=== PATIENT | female | born 1950 | race Caucasian/White ===

== ENCOUNTER 2020-09-24 19:05 | Inpatient (IN) | payer MEDICARE ==
[2020-09-24] MEDS: HEPARIN SODIUM 1,000 UN/ML (10ML VL) IV ONE ×3 (08:30→22:18)
[~2020-09-24 19:05] MED LIST: ATROPINE SULFATE 0.1 MG/ML 10ML SYRINGE IV ONE; NOREPINEPHRINE 1 MG/ML 4 ML VIAL IV ONE; SODIUM CHLORIDE 0.9% 250 ML BAG ONE; TICAGRELOR 90 MG TAB PO ONE
[2020-09-24] MEDS ORDERED: SODIUM CHLORIDE 0.9% 500 ML 500 ML IV STA (19:33)
[2020-09-24] MEDS ORDERED: ASPIRIN 81 MG PO STA (19:33)
[2020-09-24] MEDS ORDERED: NITROGLYCERIN OINT 1 INCH/GM PACKET TOPICAL STA (19:33)
[2020-09-24] MEDS ORDERED: NITROGLYCERIN SL TABS 0.4 MG TAB SUBLINGUAL STA (19:33)
[2020-09-24] MEDS ORDERED: NITROGLYCERIN-D5W PMX 50 MG in DEXTROSE/WATER 1 250ML.BAG IV ONE (19:35)
[2020-09-24] MEDS ORDERED: HEPARIN SODIUM,PORCINE 5,000 UNIT/ML 1 ML VIAL IV ONE (19:36)
--- NOTE | 2020-09-24 19:43 | ED ---
General Adult HPI - General Chief complaint: Chest Pain Stated complaint: Chest Pain Time Seen by Provider: 09/24/20 19:10 Source: patient, RN notes reviewed, old records reviewed Mode of arrival: EMS Limitations: no limitations - History of Present Illness Initial comments: This is a 70-year-old female who presents emergency department with past medical history significant for coronary artery disease and one stent placement. Patient also states she has high blood pressure. Patient states 2 hours ago she started having chest pain and an was diaphoretic but she denies shortness of breath. Patient states she had [address] in with EMS and did not help her symptoms at all. Patient states this chest pain is very similar to chest pain she had when she had her previous heart attack. - Related Data Home Medications Medication Instructions Recorded Confirmed Nitroglycerin Sl Tabs [Nitrostat] 0.4 mg SL Q5M PRN 05/25/14 01/24/16 atenoloL [Tenormin] 25 mg PO BID 05/25/14 01/24/16 Aspirin EC [Ecotrin Low Dose] 243 mg PO DAILY 01/10/16 01/24/16 Atorvastatin [Lipitor] 40 mg PO HS 01/24/16 01/24/16 Allergies Allergy/AdvReac Type Severity Reaction Status Date / Time No Known Allergies Allergy Verified 09/24/20 19:13 Review of Systems ROS Statement: Those systems with pertinent positive or pertinent negative responses have been documented in the HPI. ROS Other: All systems not noted in ROS Statement are negative. Past Medical History Past Medical History: Coronary Artery Disease (CAD), Chest Pain / Angina, GERD/Reflux, Hyperlipidemia, Hypertension, Syncope Additional Past Medical History / Comment(s): Pt recently admitted 01/10/16 and had negative stress test, positive for UTI and completed ABX. 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 General Exam - General Exam Comments Initial Comments: GENERAL: Patient is well-developed and well-nourished. Patient is nontoxic and well- hydrated and is in moderate distress. ENT: Neck is soft and supple. No significant lymphadenopathy is noted. Oropharynx is clear. Moist mucous membranes. Neck has full range of motion without eliciting any pain. EYES: The sclera were anicteric and conjunctiva were pink and moist. Extraocular movements were intact and pupils were equal round and reactive to light. Eyelids were unremarkable. PULMONARY: Unlabored respirations. Good breath sounds bilaterally. No audible rales rhonchi or wheezing was noted. CARDIOVASCULAR: There is a regular rate and rhythm without any murmurs gallops or rubs. ABDOMEN: Soft and nontender with normal bowel sounds. SKIN: Skin is clear with no lesions or rashes and otherwise unremarkable. NEUROLOGIC: Patient is alert and oriented x3. Cranial nerves II through XII are grossly intact. Motor and sensory are also intact. Normal speech, volume and content. Symmetrical smile. MUSCULOSKELETAL: Normal extremities with adequate strength and full range of motion. No lower extremity swelling or edema. No calf tenderness. LYMPHATICS: No significant lymphadenopathy is noted PSYCHIATRIC: Normal psychiatric evaluation. Limitations: no limitations Course Vital Signs 09/24/20 09/24/20 19:09 19:54 Temperature 97.9 F Pulse Rate 62 61 Respiratory 18 18 Rate Blood Pressure 117/69 120/64 O2 Sat by Pulse 96 100 Oximetry Medical Decision Making - Medical Decision Making EKG was done initially shows sinus bradycardia 57 bpm WA interval is 186 QRS is 82 QT interval 446 QTC is 434. Patient's EKG shows some ST segment elevation in leads V1 through the 4. Second EKG was done approximately 15 minutes later it showed a normal sinus rhythm at 60 bpm WA interval is 126 QRS is 72 QT interval is [address] segment elevation in V1 through V5. As soon as I saw the first EKG I called a STEMI overhead Dr. Rodrigues called back promptly and he was in agreement that it was a STEMI. I started the patient on a 4000 bolus heparin I started the patient on a nitro drip. Director Of Nurses Registry was ready to take the patient 757. - Lab Data Result diagrams: 09/24/20 19:38 09/24/20 19:35 Lab Results 09/24/20 09/24/20 Range/Units 19:35 19:38 WBC 12.6 H (3.8-10.6) k/uL RBC 4.39 (3.80-5.40) m/uL Hgb 12.4 (11.4-16.0) gm/dL Hct 39.1 (34.0-46.0) % MCV 89.0 (80.0-100.0) fL MCH 28.2 (25.0-35.0) pg MCHC 31.7 (31.0-37.0) g/dL RDW 13.4 (11.5-15.5) % Plt Count 290 (150-450) k/uL MPV 9.2 Neutrophils % 68 % Lymphocytes % 22 % Monocytes % 5 % Eosinophils % 3 % Basophils % 0 % Neutrophils # 8.6 H (1.3-7.7) k/uL Lymphocytes # 2.8 (1.0-4.8) k/uL Monocytes # 0.6 (0-1.0) k/uL Eosinophils # 0.4 (0-0.7) k/uL Basophils # 0.1 (0-0.2) k/uL Sodium 137 (137-145) mmol/L Potassium 4.2 (3.5-5.1) mmol/L Chloride 105 (98-107) mmol/L Carbon Dioxide 26 (22-30) mmol/L Anion Gap 6 mmol/L BUN 19 H (7-17) mg/dL Creatinine 0.83 (0.52-1.04) mg/dL Est GFR (CKD-EPI)AfAm 83 (>60 ml/min/1.73 sqM) Est GFR (CKD-EPI)NonAf 72 (>60 ml/min/1.73 sqM) Glucose 170 H (74-99) mg/dL Calcium 8.5 (8.4-10.2) mg/dL Magnesium 1.8 (1.6-2.3) mg/dL Total Bilirubin 0.4 (0.2-1.3) mg/dL AST 29 (14-36) U/L ALT 25 (4-34) U/L Alkaline Phosphatase 164 H (38-126) U/L Total Protein 6.8 (6.3-8.2) g/dL Albumin 3.8 (3.5-5.0) g/dL Critical Care Time Critical Care Time: Yes Total Critical Care Time: 35 Disposition Clinical Impression: ST elevation myocardial infarction (STEMI) Disposition: ADMITTED IP TO THIS HOSP Referrals: Nonstaff,Physician [Primary Care Provider] - 1-2 days Time of Disposition: 19:58
[2020-09-24 19:46] LABS: Basophils # (A) 0.1 k/uL (0-0.2); Basophils % (A) 0 %; Eosinophils # (A) 0.4 k/uL (0-0.7); Eosinophils % (A) 3 %; HCT 39.1 % (34.0-46.0); HGB 12.4 gm/dL (11.4-16.0); Lymphocytes # (A) 2.8 k/uL (1.0-4.8); Lymphocytes % (A) 22 %; MCH 28.2 pg (25.0-35.0); MCHC 31.7 g/dL (31.0-37.0); Mean Platelet Volume 9.2; Monocytes # (A) 0.6 k/uL (0-1.0); Monocytes % (A) 5 %; Neutrophils # (A) 8.6 k/uL (1.3-7.7); Neutrophils % (A) 68 %; Platelet Count 290 k/uL (150-450); RBC 4.39 m/uL (3.80-5.40); RDW 13.4 % (11.5-15.5); WBC 12.6 k/uL (3.8-10.6)
[2020-09-24 19:57] LABS: Albumin 3.8 g/dL (3.5-5.0); Calcium 8.5 mg/dL (8.4-10.2); Magnesium 1.8 mg/dL (1.6-2.3); Potassium 4.2 mmol/L (3.5-5.1); Total Bilirubin 0.4 mg/dL (0.2-1.3); Total Protein 6.8 g/dL (6.3-8.2)
--- NOTE | 2020-09-24 19:58 | XR ---
EXAMINATION TYPE: XR chest 1V portable DATE OF EXAM: 09/24/2020 COMPARISON: 01/24/2016 HISTORY: Chest pain TECHNIQUE: Single view FINDINGS: Heart is normal. Lungs are clear of consolidation. There are no hilar masses. Costophrenic angles are clear. There are chest leads. Bony thorax is intact. IMPRESSION: No active cardiopulmonary disease. No change.
[2020-09-24] MEDS ORDERED: LIDOCAINE 1% INJ 10MG/ML (20 ML MDV) ONE ×2 (20:00→20:43)
[2020-09-24 20:02] LABS: INR 0.9 (<1.2)
[2020-09-24 20:06] LABS: Partial Thromboplastin Time 16.5 sec (22.0-30.0)
[2020-09-24] MEDS ORDERED: SODIUM CHLORIDE 0.9% 500 ML 500 ML IV ONE (20:10)
[2020-09-24] MEDS ORDERED: fentaNYL (PF) 50 MCG/ML 2 ML AMP ONE (20:14)
[2020-09-24] MEDS ORDERED: VERAPAMIL 2.5 MG/ML 2 ML AMP ONE (20:15)
[2020-09-24] MEDS ORDERED: LIDOCAINE 1% INJ 10MG/ML (20 ML MDV) SQ ONE (20:18)
[2020-09-24] MEDS ORDERED: fentaNYL (PF) 50 MCG/ML 2 ML AMP IV ONE (20:18)
[2020-09-24] MEDS ORDERED: VERAPAMIL SYRINGE (5 MG/10 ML) INTRAARTER ONE (20:20)
[2020-09-24] MEDS ORDERED: HEPARIN SODIUM 1,000 UN/ML (10ML VL) ONE ×2 (20:29→21:37)
[2020-09-24] MEDS ORDERED: TICAGRELOR 90 MG TAB ONE (20:30)
--- NOTE | 2020-09-24 20:39 | P.CRDCN ---
History of Present Illness Consult date: 09/24/20 History of present illness: This is a 70-year-old female with history of ischemic heart disease with previous stent placement of the mid LAD and also hypercholesterolemia who is admitted to the hospital with complaints of chest pain which started about 2 hours ago. EKG showed evidence of anterior wall myocardial infarction. Patient is advised to have a cardiac catheterization for definite diagnosis and further intervention as needed. Patient is having significant chest pain at the time of this evaluation. Review of Systems Not obtained Past Medical History Past Medical History: Coronary Artery Disease (CAD), Chest Pain / Angina, GERD/Reflux, Hyperlipidemia, Hypertension, Syncope Additional Past Medical History / Comment(s): Pt recently admitted 01/10/16 and had negative stress test, positive for UTI and completed ABX. 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 Medications and Allergies Home Medications Medication Instructions Recorded Confirmed Type Nitroglycerin Sl Tabs [Nitrostat] 0.4 mg SL Q5M PRN 05/25/14 09/24/20 History atenoloL [Tenormin] 25 mg PO BID 05/25/14 09/24/20 History Aspirin EC [Ecotrin Low Dose] 243 mg PO HS 01/10/16 09/24/20 History Atorvastatin [Lipitor] 40 mg PO HS 01/24/16 09/24/20 History Allergies Allergy/AdvReac Type Severity Reaction Status Date / Time No Known Allergies Allergy Verified 09/24/20 19:13 Physical Exam Vitals: Vital Signs Temp Pulse Resp BP Pulse Ox 09/24/20 20:20 97.9 F 61 18 120/64 100 09/24/20 19:54 61 18 120/64 100 09/24/20 19:09 97.9 F 62 18 117/69 96 Intake and Output 09/24/20 09/24/20 09/24/20 06:59 14:59 22:59 Other: Weight 89.811 kg GENERAL EXAM: Patient is alert and oriented and still having severe chest pain HEENT: Normocephalic. Normal reaction of pupils, equal size, normal range of extraocular motion. No erythema or exudates in the throat. NECK: No masses, no nuchal rigidity. CHEST: No chest wall deformity. LUNGS: Equal air entry with no crackles or wheeze. HEART: S1 and S2 normal with no audible mumurs or gallops. Regular rhythm, femorals equal on both sides.. ABDOMEN: No hepatosplenomegaly, normal bowel sounds, no guarding or rigidity. SKIN: No rashes CENTRAL NERVOUS SYSTEM: No focal deficits. EXTREMITIES: No cyanosis, clubbing or edema. Results 09/24/20 19:38 09/24/20 19:35 Cardiac Enzymes 09/24/20 09/24/20 Range/Units 19:35 19:38 AST 29 (14-36) U/L Troponin I <0.012 (0.000-0.034) ng/mL Coagulation 09/24/20 Range/Units 19:38 PT 10.0 (9.0-12.0) sec APTT 16.5 L (22.0-30.0) sec CBC 09/24/20 Range/Units 19:38 WBC 12.6 H (3.8-10.6) k/uL RBC 4.39 (3.80-5.40) m/uL Hgb 12.4 (11.4-16.0) gm/dL Hct 39.1 (34.0-46.0) % Plt Count 290 (150-450) k/uL Comprehensive Metabolic Panel 09/24/20 Range/Units 19:35 Sodium 137 (137-145) mmol/L Potassium 4.2 (3.5-5.1) mmol/L Chloride 105 (98-107) mmol/L Carbon Dioxide 26 (22-30) mmol/L BUN 19 H (7-17) mg/dL Creatinine 0.83 (0.52-1.04) mg/dL Glucose 170 H (74-99) mg/dL Calcium 8.5 (8.4-10.2) mg/dL AST 29 (14-36) U/L ALT 25 (4-34) U/L Alkaline Phosphatase 164 H (38-126) U/L Total Protein 6.8 (6.3-8.2) g/dL Albumin 3.8 (3.5-5.0) g/dL Current Medications Generic Name Dose Route Start Last Admin Trade Name Freq PRN Reason Stop Dose Admin Nitroglycerin/Dextrose 50 mg/ 250 mls @ 1.5 mls/hr 09/24/20 19:35 09/24/20 19:55 IV Solution IV 09/25/20 19:34 5 mcg/min .Q24H ONE 1.5 mls/hr Administration Protocol 5 MCG/MIN Intake and Output 09/24/20 09/24/20 09/24/20 06:59 14:59 22:59 Other: Weight 89.811 kg Patient Weight 09/25/20 06:59 Weight 89.811 kg 09/24/20 19:38 09/24/20 19:35 EKG Interpretations (text) Sinus rhythm with acute anterior wall DE Assessment and Plan (1) Essential hypertension Current Visit: Yes Status: Acute Code(s): I10 - ESSENTIAL (PRIMARY) HYPERTENSION SNOMED Code(s): 90706405 (2) ST elevation myocardial infarction (STEMI) Current Visit: Yes Status: Acute Code(s): I21.3 - ST ELEVATION (STEMI) MYOCARDIAL INFARCTION OF [facility] SITE SNOMED Code(s): 74592767 (3) Hypercholesterolemia Current Visit: Yes Status: Acute Code(s): E78.00 - PURE HYPERCHOLESTEROLEMIA, UNSPECIFIED SNOMED Code(s): 44454501 Plan: Proceed with the cardiac catheterization and further intervention as needed
--- NOTE | 2020-09-24 20:42 | P.CARDCATH ---
Date of Procedure: 09/24/20 Preoperative Diagnosis: Acute anterior wall myocardial infarction Postoperative Diagnosis: Total occlusion of the mid LAD Procedure(s) Performed: Left heart catheterization without left ventriculography Description of Procedure: HISTORY: This is 70-year-old female with history of any cardiac disease and previous stent placement of the LAD who presents to the hospital with acute anterolateral myocardial infarction. CONSENT:I have discussed the risks, benefits and alternative therapies for the above-mentioned procedure and for both sedation/analgesia as well as necessary blood product administration, if indicated, as they pertain to this patient. The patient has indicated understanding and acceptance of the risks and procedures discussed. PROCEDURE: Patient was brought to the lab in a fasting state. Patient was given some IV sedation. The right wrist is infiltrated with lidocaine and right radial artery was entered using Seldinger technique. A 6-Omani catheter was left in place and selective coronary arteriography was performed. Patient tolerated the procedure well. Patient is found to have total occlusion of the LAD and went on to have stent placement by Dr. Scales . No immediate complications were noted . Conscious Sedation: Versed []mg Fentanyl 50 g Duration 13minutes HEMODYNAMICS: The aortic pressure is 130/70 SELECTIVE CORONARY ARTERIOGRAPHY: LEFT MAIN: Normal length and free of occlusive disease THE LEFT ANTERIOR DESCENDING CORONARY ARTERY: . Good caliber vessel with total occlusion in midportion THE LEFT CIRCUMFLEX AND IS CORONARY ARTERY: . Good caliber vessel with mild disease THE RIGHT CORONARY ARTERY: Good caliber vessel with about 50-60% stenosis of the ostium of the PDA LEFT VENTRICULOGRAPHY: Not performed FINAL IMPRESSION: . Total occlusion of the mid LAD PLAN: Proceed with stent placement of the LAD PROGNOSIS: Guarded
[2020-09-24] MEDS ORDERED: IOPAMIDOL-370 125ML BTL INJ ONE (21:04)
[2020-09-24] MEDS ORDERED: NITROGLYCERIN 1000MCG/10ML SYRINGE INTRACORON ONE (21:33)
[2020-09-24] MEDS ORDERED: MIDAZOLAM 2 MG/2 ML VIAL IV ONE (21:42)
[2020-09-24] MEDS ORDERED: IOPAMIDOL-370 100ML BTL INJ ONE ×2 (21:45→21:58)
[2020-09-24] MEDS ORDERED: RX INFO: IV CONTRAST WAS GIVEN 1 EACH MISC MISCELLANE PRN (22:38)
[2020-09-24 22:47] LABS: Glucose,Whole Blood 149 mg/dL (75-99)
[2020-09-24] MEDS ORDERED: NITROGLYCERIN SL TABS 0.4 MG TAB SUBLINGUAL PRN (23:00)
[2020-09-24] MEDS ORDERED: SODIUM CHLORIDE 0.9% 1,000 ML IV SCH (23:00)
--- NOTE | 2020-09-25 00:31 | PTCA ---
PERCUTANEOUSTRANS CORORONARY ANGIOGRAPHY Mrs. Keita is a 70-year-old female with a known history of coronary artery disease status post stenting of the LAD over 8 years ago, who presented with evidence of acute anterior wall myocardial infarction, underwent cardiac catheterization by Dr. Rodrigues and was found to have a totally occluded mid LAD. In view of that, recommendation regarding angioplasty and stenting, the procedures, risks, and complication were discussed with the patient who is in full understanding and agreement. PROCEDURE PERFORMED: Attempted to cannulate the left main ostium using a 6-Beninese FL 3.5 guiding catheter and 6-Beninese EBU 3.75 were unsuccessful from the radial approach at that time and because of episode of high-grade AV block, using Xylocaine anesthesia and Seldinger technique, a 6-Beninese sheath was introduced in the right femoral artery and a 6-Beninese sheath in the right femoral vein. A temporary pacemaker was advanced, positioned and good pacing parameters were obtained. Following that, a 6-Beninese FL4 guiding catheter was introduced into the system. After cannulating the left main, a 0.014 with the help of a microcatheter Fine Cross was used to cross the total occlusion. The wire was positioned distally and a 2.0 x 12 mm Trek balloon was advanced and multiple inflations were done. Following that, the balloon was removed and a 2.5 x 12 mm Trek balloon was advanced and inflations were done in the total occlusion area. Following that, the 2.5 x 12 NC Trek balloon was advanced proximally and inflation at 12 atmospheres was done. Following that, the balloon was removed, attempt to advance a 2.5 x 28 mm Xience Luly stent were unsuccessful. That stent was removed and a GuideLiner was advanced and with the help of the GuideLiner, the stent was advanced, deployed and was dilated at 16 atmospheres. Following that and with the help of GuideLiner, a 3.25 x 15 mm Xience Luly stent was advanced in the proximal LAD, deployed and postdilated at 16 atmospheres. Following that, the balloon was removed and attempts to advance a 3.5 x 12 mm NC trek and a 3.5 x 8 mm NC Trek was unsuccessful. Balloon was removed and a 3.5 x 8 mm Trek balloon was advanced and one inflation at 14 atmospheres were done. At that time, the patient started to complain of worsening chest discomfort with new EKG changes that were noted in the inferior leads. At that time, the guiding catheter, the balloon and the guidewire were removed and a 6-Beninese FR4 guiding catheter was introduced into the system, and images of the right coronary artery were obtained. There was evidence of a dissection from the ostium throughout the right coronary artery to the mid distal segment. A 0.014 balanced medium weight J-wire was advanced across the dissection, positioned distally. Then a 2.5 x 15 mm Trek balloon was advanced and inflations in the proximal and mid segment were done. Following that, a 3.0 x 15 mm Xience Luly stent was deployed in the proximal segment at the ostium. It was dilated to 16 atmospheres. Following that, the balloon was removed and another 3.0 x 15 mm Xience Luly stent was advanced distal to the first one and deployed and was dilated at 16 atmospheres. Following that, a 3.25 x 15 mm NC Trek balloon was advanced and inflations in the stents were done up to 14 atmospheres. After the last inflation, after appropriate wait, the balloon and the guidewire were withdrawn back in the guiding catheter. Images were obtained repeated those images reveal stable successful stenting. At that point, the guiding catheter, the balloon and the guidewire were removed. The temporary pacemaker was removed. The radial sheath was removed and hemostasis was obtained with deployment of a TR band. Following that, the right femoral artery sheath was removed and hemostasis was obtained with deployment of an Angio-Seal. The right femoral vein sheath was sutured in place. Of note, the patient received a total of 9000 units of intravenous heparin and her ACT was followed throughout the procedure. Of note, at the end of the procedure, she had normalized her EKG and there was no chest discomfort. She received an oral loading dose of Brilinta. RESULTS: 1. Successful stenting of the mid LAD with reduction of stenosis from 100% to 0% in a a calcified segment. 2. Successful stenting of the proximal LAD with approximately reduction of stenosis from 70% to 0%. 3. Resolution of a dissection of the proximal and mid RCA of unclear etiology with alevism of the flow with REBA-3 flow. There was evidence of the flap in the distal segment with a REBA-3 flow and resolution of pain. In view of that, the patient will be observed for any further symptoms. 4. Transient episode of complete heart block that resolved. RECOMMENDATIONS: Patient will be continued on aspirin, Brilinta, beta blockers and statin. The importance of dual antiplatelet treatment were discussed with the patient and her family and they are in full understanding and agreement. Duration of procedure is 104 minutes. DEVON / CHER: [id number] / MTDD
[2020-09-25 01:23] LABS: Cholesterol 173 mg/dL (<200); HDL Cholesterol 70 mg/dL (40-60); LDL Cholesterol,Calculated 88 mg/dL (0-99); Triglycerides 77 mg/dL (<150)
[2020-09-25 03:21] LABS: Basophils # (A) 0.1 k/uL (0-0.2); Basophils % (A) 0 %; Eosinophils # (A) 0.1 k/uL (0-0.7); Eosinophils % (A) 1 %; HGB 12.6 gm/dL (11.4-16.0); Hypochromasia Slight; Lymphocytes # (A) 2.1 k/uL (1.0-4.8); Lymphocytes % (A) 14 %; MCHC 30.7 g/dL (31.0-37.0); MCV 91.2 fL (80.0-100.0); Mean Platelet Volume 8.2; Monocytes # (A) 0.5 k/uL (0-1.0); Monocytes % (A) 4 %; Neutrophils # (A) 11.6 k/uL (1.3-7.7); Neutrophils % (A) 80 %; Platelet Count 252 k/uL (150-450); RBC 4.49 m/uL (3.80-5.40); RDW 13.5 % (11.5-15.5); WBC 14.6 k/uL (3.8-10.6)
[2020-09-25 03:22] LABS: Calcium 8.6 mg/dL (8.4-10.2)
[2020-09-25 03:26] LABS: Potassium 4.5 mmol/L (3.5-5.1)
--- NOTE | 2020-09-25 03:32 | P.HPIM ---
History of Present Illness H&P Date: 09/25/20 Patient is a 70-year-old female with a PMH of coronary artery disease status post PCI 1 to mid LAD, hypertension, lipidemia presented to the emergency room with complaints of sudden onset of chest pain. The patient reports that she was in her usual state of health until about 5 PM today when he suddenly developed a substernal 10 out of 10 nonradiating chest discomfort. She reported associated diaphoresis but denied shortness of breath, nausea, vomiting, dizziness, or palpitations. The patient was brought into the emergency room where an EKG was concerning for an ST elevation MT. A code STEMI was activated and the patient was immediately taken to the cardiac record label intern. She underwent a coronary angiogram via right radial approach with stenting of the mid LAD. The patient subsequently had another angiogram via a right femoral approach with subsequent stenting of the proximal LAD, along with PCI 2 of RCA with resolution of an RCA dissection. The patient was seen in the medical ICU after her catheterization. She reported no further episodes of chest discomfort. Noted feeling back to her baseline. Denied shortness of breath, nausea, vomiting, palpitations, dizziness, fever, chills, cough, or abdominal pain. Laboratory evaluation was reviewed. Review of Systems Pertinent positives and negatives as discussed in HPI, a complete review of systems was performed and all other systems are negative. Past Medical History Past Medical History: Coronary Artery Disease (CAD), Chest Pain / Angina, Hyperlipidemia, Hypertension, Syncope Additional Past Medical History / Comment(s): Pt recently admitted 01/10/16 and had negative stress test, positive for UTI and completed ABX. 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 Medications and Allergies Home Medications Medication Instructions Recorded Confirmed Type Nitroglycerin Sl Tabs [Nitrostat] 0.4 mg SL Q5M PRN 05/25/14 09/24/20 History atenoloL [Tenormin] 25 mg PO BID 05/25/14 09/24/20 History Aspirin EC [Ecotrin Low Dose] 243 mg PO HS 01/10/16 09/24/20 History Atorvastatin [Lipitor] 40 mg PO HS 01/24/16 09/24/20 History Allergies Allergy/AdvReac Type Severity Reaction Status Date / Time No Known Allergies Allergy Verified 09/24/20 19:13 Physical Exam Vitals: Vital Signs Temp Pulse Resp BP Pulse Ox 09/25/20 02:00 71 21 144/93 97 09/25/20 01:30 73 16 128/69 96 09/25/20 01:00 60 16 131/70 95 09/25/20 00:30 62 137/91 96 09/25/20 00:00 62 16 96 09/24/20 23:30 77 15 145/78 95 09/24/20 23:00 97.4 F L 76 12 121/82 95 09/24/20 20:20 97.9 F 61 18 120/64 100 09/24/20 19:54 61 18 120/64 100 09/24/20 19:09 97.9 F 62 18 117/69 96 Intake and Output 09/24/20 09/24/20 09/25/20 14:59 22:59 06:59 Intake Total 300 300 Output Total 700 Balance 300 -400 Intake: IV 300 300 Sodium Chloride 0.9% 1, 300 000 ml @ 75 mls/hr IV . [id number] [facility] Rx#:[id number] Output: Urine 700 Other: Weight 98 kg General: non toxic, no distress, appears at stated age, obese Derm: no unusual rashes/lesions no unusual ecchymoses, warm, dry Head: atraumatic, normocephalic, symmetric Eyes: EOMI, no lid lag, anicteric sclera, pupils equal round reactive to light ENT: Nose and ears atraumatic, no thrush, no pharyngeal erythema Neck: No thyromegaly, no cervical lymphadenopathy, trachea midline, supple Mouth: no lip lesion, mucus membranes moist Cardiovascular: S1S2 reg, no murmur, positive posterior tibial pulse bilateral, no edema, capillary refill less than 2 seconds Lungs: CTA bilateral, no rhonchi, no rales , no accessory muscle use Abdominal: soft, nontender to palpation, no guarding, no appreciable organomegaly, normal bowel sounds Ext: no gross muscle atrophy, moving all extremities, no focal deficits, no contractures, Neuro: CN II-XI grossly intact, light touch intact all 4 extremities, finger to nose within normal limits, Psych: Alert, oriented, appropriate affect Results CBC & Chem 7: 09/24/20 19:38 09/24/20 19:35 Labs: Abnormal Lab Results - Last 24 Hours (Table) 09/24/20 09/24/20 09/24/20 Range/Units 19:35 19:38 19:38 WBC 12.6 H (3.8-10.6) k/uL Neutrophils # 8.6 H (1.3-7.7) k/uL APTT 16.5 L (22.0-30.0) sec BUN 19 H (7-17) mg/dL Glucose 170 H (74-99) mg/dL POC Glucose (mg/dL) (75-99) mg/dL Alkaline Phosphatase 164 H (38-126) U/L Troponin I (0.000-0.034) ng/mL HDL Cholesterol (40-60) mg/dL 09/24/20 09/24/20 09/24/20 Range/Units 22:44 23:13 23:13 WBC (3.8-10.6) k/uL Neutrophils # (1.3-7.7) k/uL APTT (22.0-30.0) sec BUN (7-17) mg/dL Glucose (74-99) mg/dL POC Glucose (mg/dL) 149 H (75-99) mg/dL Alkaline Phosphatase (38-126) U/L Troponin I 8.310 H* (0.000-0.034) ng/mL HDL Cholesterol 70 H (40-60) mg/dL Thrombosis Risk Factor Assmnt - Choose All That Apply Each Factor Represents 1 point: Obesity (BMI >25) Each Risk Factor Represents 2 Points: Age 61-74 years Thrombosis Risk Factor Assessment Total Risk Factor Score: 3 Thrombosis Risk Factor Assessment Level: Moderate Risk Assessment and Plan Plan: STEMI status post PCI 4 -Continue with aspirin and brilinta -Cardiac monitoring -Continue with Lipitor Leukocytosis -Likely secondary to acute distress or -Monitor for now Hyperglycemia -Check A1c Chronic conditions: Hypertension, hyperlipidemia -Patient switched from atenolol to Lopressor -Continue with Lipitor 80 mg DVT prophylaxis -heparin subq The patient is admitted with an anticipated greater than 2 midnight stay for evaluation of STEMI CODE STATUS: Full Code Discussed with: Patient Anticipated discharge date: 2-[address]: Home A total of 35 minutes was spent on the care of this complex patient more than 50% of the time was spent in counseling and care coordination.
[2020-09-25 06:45] LABS: Glucose,Whole Blood 125 mg/dL (75-99)
[2020-09-25] MEDS: INSULIN ASPART (NovoLOG) 100 UNIT/ML VIAL SQ SCH ×2 (06:53→14:29)
[2020-09-25] MEDS ORDERED: HEPARIN SODIUM,PORCINE 5,000 UNIT/ML 1 ML VIAL SQ SCH (08:00)
--- NOTE | 2020-09-25 08:33 | PN ---
PROGRESS NOTE Mrs. Keita is a 70-year-old female with known history of coronary artery disease, status post stenting of the LAD in 2001 who presented yesterday with an acute anterior myocardial infarction, underwent cardiac catheterization by Dr. Rodrigues and was found to have a totally occluded mid LAD underwent successful stenting of the mid and proximal LAD. Subsequently, patient started to complain of chest discomfort with ST- segment elevation inferiorly, was found to have a dissection involving the right coronary artery, underwent stenting of that vessel. She is doing well this morning. She denies any chest pain. She denies any dizziness or palpitation. She denies any recurrent symptoms. She continues to be on aspirin once a day, Lipitor 80 mg daily, metoprolol tartrate 25 mg twice a day, spironolactone 25 mg daily, Brilinta 90 mg twice a day. PHYSICAL EXAMINATION: Blood pressure 120/60 with the heart rate in the 60s. LUNGS: Clear. HEART: Regular rate and rhythm. S1, S2. No S3 with systolic murmur. No diastolic murmur. No rub. ABDOMEN: Soft, obese, nontender. EXTREMITIES: No edema. Right groin no hematoma. Right radial pulse intact. LAB DATA: Lab data revealed BUN and creatinine 20 and 0.81. Potassium 4.5. Hemoglobin of 12.6. Troponin peak of 14.1. Her cholesterol is 173 with an LDL of 88. IMPRESSION: 1. Status post anterior myocardial infarction with stenting of the left anterior descending artery and dissection of the right coronary artery with stenting of the right coronary artery. Detail of the dissection is clear. 2. Prior history of stenting of the left anterior descending artery in 2001. 3. History of hypertension. 4. Hyperlipidemia. RECOMMENDATION: I will continue present therapy. An echocardiogram with Doppler will be obtained today. Will increase her level of activity. If she remains stable, she may be able to be transferred to telemetry floor in the afternoon and depending on her progress, further recommendation will be made. MMODL / IJN: [id number] /
[2020-09-25] MEDS ORDERED: ASPIRIN 81 MG PO SCH (09:00)
[2020-09-25] MEDS ORDERED: TICAGRELOR 90 MG TAB PO SCH (09:00)
[2020-09-25] MEDS ORDERED: SPIRONOLACTONE 25 MG TAB PO SCH (09:00)
[2020-09-25] MEDS ORDERED: METOPROLOL TARTRATE 25 MG TAB PO SCH (09:00)
--- NOTE | 2020-09-25 10:31 | ECHOF ---
Referral Reason:tx MEASUREMENTS -------- HEIGHT: 162.6 cm WEIGHT: 98.0 kg BP: 120/66 RVIDd: 2.7 cm (< 3.3) IVSd: 1.5 cm (0.6 - 1.1) LVIDd: 3.2 cm (3.9 - 5.3) LVPWd: 1.6 cm (0.6 - 1.1) IVSs: 2.0 cm LVIDs: 1.4 cm LVPWs: 1.5 cm LAESV Index (A-L): 22.68 ml/m Ao Diam: 3.1 cm (2.0 - 3.7) AV Cusp: 2.0 cm (1.5 - 2.6) MV EXCURSION: 18.162 mm (> 18.000) MV EF SLOPE: 73 mm/s (70 - 150) EPSS: 0.5 cm MV E Rob: 0.85 m/s MV DecT: 151 ms MV A Rob: 1.08 m/s MV E/A Ratio: 0.79 RAP: 5.00 mmHg RVSP: 41.88 mmHg FINDINGS -------- Sinus rhythm. This was a technically difficult study with suboptimal apical views. Patient is post cardiac catheterization and cannot be in left lateral position. The left ventricular size is normal. There is moderate concentric left ventricular hypertrophy. O verall left ventricular systolic function is low-normal with, an EF between 50 - 55 %. Apical anter ior LV wall motion is hypokinetic. Apical septum LV wall motion is hypokinetic. The right ventricle is normal in size. Normal LA size by volume 22+/-6 ml/m2. The right atrial size is normal. 5.0mg of Lumason was utilized for enhancement of images Interatrial and interventricular septum intact. The aortic valve is trileaflet and appears structurally normal. Trace amount of aortic regurgitatio n. There is no evidence of aortic stenosis. Mild mitral regurgitation is present. Mild tricuspid regurgitation present. There is mild pulmonary hypertension. The right ventricular systolic pressure, as measured by Doppler, is 41.88mmHg. There is no pulmonic regurgitation present. The aortic root size is normal. IVC Not well visulized. There is no pericardial effusion. CONCLUSIONS -------- 1. The left ventricular size is normal. 2. There is moderate concentric left ventricular hypertrophy. 3. Overall left ventricular systolic function is low-normal with, an EF between 50 - 55 %. 4. Apical anterior LV wall motion is hypokinetic. 5. Apical septum LV wall motion is hypokinetic. 6. Trace amount of aortic regurgitation. 7. Mild mitral regurgitation is present. 8. Mild tricuspid regurgitation present. 9. There is mild pulmonary hypertension. 10. The right ventricular systolic pressure, as measured by Doppler, is 41.88mmHg. CONFIGURATION DEVELOPER: Starr Piña RDCS
--- NOTE | 2020-09-25 11:03 | P.PN ---
Progress Note - Text Progress Note Date: 09/25/20 Patient had some chest pain this morning. She was seen by cardiology and patient will be taken for a left heart catheterization again today.
[2020-09-25] MEDS ORDERED: SODIUM CHLORIDE 0.9% 500 ML 500 ML IV ONE (11:10)
[2020-09-25] MEDS ORDERED: fentaNYL (PF) 50 MCG/ML 2 ML AMP ONE (11:10)
[2020-09-25] MEDS ORDERED: LIDOCAINE 1% INJ 10MG/ML (20 ML MDV) ONE (11:10)
[2020-09-25] MEDS ORDERED: fentaNYL (PF) 50 MCG/ML 2 ML AMP IV ONE (11:16)
[2020-09-25] MEDS ORDERED: LIDOCAINE 1% INJ 10MG/ML (20 ML MDV) SQ ONE (11:18)
[2020-09-25] MEDS ORDERED: NITROGLYCERIN 1000MCG/10ML SYRINGE INTRACORON ONE (11:27)
[2020-09-25] MEDS ORDERED: HEPARIN SODIUM 1,000 UN/ML (10ML VL) ONE (11:32)
[2020-09-25] MEDS: HEPARIN SODIUM 1,000 UN/ML (10ML VL) IV ONE ×2 (11:33→12:26)
[2020-09-25] MEDS ORDERED: HEPARIN SODIUM 1,000 UN/ML (10ML VL) IV ONE (11:33)
[2020-09-25] MEDS ORDERED: IOPAMIDOL-370 125ML BTL INJ ONE (11:43)
[2020-09-25] MEDS ORDERED: IOPAMIDOL-370 100ML BTL INJ ONE ×2 (12:41→13:33)
[2020-09-25] MEDS ORDERED: ATROPINE SULFATE 0.1 MG/ML 10ML SYRINGE IV PRN ×2 (13:36)
[2020-09-25] MEDS ORDERED: SODIUM CHLORIDE 0.9% 1,000 ML IV ONE (13:36)
[2020-09-25] MEDS ORDERED: RX INFO: IV CONTRAST WAS GIVEN 1 EACH MISC MISCELLANE PRN (13:36)
[2020-09-25] MEDS ORDERED: MAG HYDROX/AL HYDROX/SIMETH 30 ML CUP PO PRN ×2 (13:36)
[2020-09-25] MEDS ORDERED: NITROGLYCERIN SL TABS 0.4 MG TAB SUBLINGUAL PRN (13:36)
[2020-09-25] MEDS ORDERED: ZOLPIDEM 5 MG TAB PO PRN ×2 (13:36)
--- NOTE | 2020-09-25 13:40 | CDI ---
Documentation Clarification Form Date: 09/25/2020 01:07:46 PM From: Jessy Cardona RN CCDS Admit Date: 09/24/2020 08:32:00 PM Patient Name: Arely Keita Visit Number: [id number] Discharge Date: ATTENTION: The Clinical Documentation Specialists (CDI) and [facility] Coding Staff appreciate your assistance in clarifying documentation. Please respond to the clarification below the line at the bottom and electronically sign. The CDI & [facility] Coding staff will review the response and follow-up if needed. Please note: Queries are made part of the Legal Health Record. If you have any questions, please contact the author of this message via ITS. Dr. Norman Cash dissection from the ostium throughout the right coronary artery to the mid distal segment. is documented in the PTCA note 09/24/20 Patients Admitting Diagnosis: Anterior wall myocardial infarction with totally occluded mid LAD. Post-Operative Diagnosis: Transient episode of complete heart block that resolved. Procedure performed: Successful stenting of the mid LAD with reduction of stenosis from 100% to 0% in a calcified segment. Successful stenting of the proximal LAD with approximately reduction of stenosis from 70% to 0%. Resolution of a dissection of the proximal and mid RCA of unclear etiology with sabianism of the flow with REBA 3 flow. There was evidence of the flap in the distal segment with a REBA 3 flow and resolution of pain. History/Risk Factors: 70-year-old female presents to the ED with sudden onset of chest pain. Medical Hx: HTN, HLD, CAD and chest pain/angina Clinical Indicators: Per PTCA NOTE 09/24/20: Attempted to cannulate the left main ostium using a 6- Prydeinig FL 3.5 guiding catheter and 6-Prydeinig EBU 3.75 were unsuccessful from the radial approach at that time and because of the episode of high-grade AV block. Following that and with the help of Guide Liner, a 3.25 x 15 mm Xience Luly stent was advanced in the proximal LAD, deployed and post dilated at 16 atmospheres. Following that, the balloon was removed and attempts to advance a 3.5 x 12 mm NC trek and a 3.5 x 8 mm NC Trek was unsuccessful. Balloon was removed and a 3.5 x 8 mm Trek balloon was advanced and one inflation at 14 atmospheres were done. At that time, the patient started to complain of worsening chest discomfort with new EKG changes that were noted in the inferior leads. At that time, the guiding catheter, the balloon and the guidewire were removed and a 6-Prydeinig FR4 guiding catheter was introduced into the system, and images of the right coronary artery were obtained. There was evidence of a & dissection from the ostium throughout the right coronary artery to the mid distal segment. Treatment: Islam of the flow with REBA-3 flow In order to accurately reflect this patients severity of illness, please clarify if dissection is the result of the surgical procedure? Yes No XXX Other, please specify Unable to determine (Last Revision: December 2017) MTDD
[2020-09-25] MEDS ORDERED: SODIUM CHLORIDE 0.9% 1,000 ML IV SCH (13:45)
[2020-09-25 13:59] VITALS: TEMP 97.6
[2020-09-25 14:05] VITALS: BMI 37.1
--- NOTE | 2020-09-25 14:09 | PTCA ---
PERCUTANEOUSTRANS CORORONARY ANGIOGRAPHY Mrs. Keita is a 70-year-old female who presented yesterday with an acute anterior wall myocardial infarction, underwent stenting of the right coronary artery, then was found to have a large dissection in the RCA from the ostium to the mid distal segment. She had 2 stents in the proximal RCA with the hope that the rest of the dissection will heal. She was doing well this morning, but throughout the morning she had an episode of chest discomfort with ST-segment elevation inferiorly that subsequently resolved spontaneously. In view of that, recommendation was made regarding cardiac catheterization. The procedure as well as the risks and the complications were discussed with the patient who is in full understanding and agreement. PROCEDURE: Patient was brought to computer lab para professional in the semi-sedated state after receiving fentanyl and Benadryl. Using Xylocaine anesthesia and Seldinger technique, a 6-Northern Irish sheath was introduced in the left femoral artery. A 6-Northern Irish FR4 guiding catheter was introduced in the system. After cannulating the right coronary ostium, a 0.014 balanced medium weight J-wire was advanced with a straight FineCross catheter and positioned distally. Following that a 2.25 x 12 mm Trek balloon was advanced and multiple inflations were done in the mid and distal segment. Subsequently attempts to advance a 2.5 x 15 mm Xience Luly stent were unsuccessful. That stent was removed and a GuideLiner was advanced. In spite of the GuideLiner there was inability to advance the 15 mm or 2.5 x 12 mm Xience Luly stent through the mid segment. At that point the GuideLiner was removed and another 0.014 balanced medium J wire was advanced and positioned distally. Following that, the 2.5 x 8 mm Xience Luly stent was advanced to the distal bifurcation and deployed and postdilated at 14 atmospheres. Following that, attempt to advance another 2.5 x 8 mm stent was unsuccessful. At that point, and after removing one of the 0.014 balanced medium weight J-wire, a run-through 0.014 wire was advanced, positioned distally and in spite of that multiple attempts to advance the stent were unsuccessful in the mid segment because of the dissection and the tortuosity. At that point the guiding wire was removed. Images were obtained and revealed a REBA-3 flow through the RCA with a long dissection and haziness from the mid to the distal segment with no progression in the PDA and PLV. The sheath was removed. Hemostasis was obtained with deployment of an Angio-Seal. The patient was pain-free and there was no chest discomfort. Of note the patient received 9000 units of intravenous heparin through the procedure and her ACT was followed. RESULTS: Unsuccessful in restenting a long dissection in the mid right coronary artery with residual dissection noted and stenting of the distal segment with REBA-3 flow at the end the procedure. RECOMMENDATION: I have discussed her case with the team at [facility] and I recommend transfer to [facility] for possible intervention and stenting of the mid RCA. Those findings and recommendations were discussed with the patient and her over the phone and they are in full understanding and agreement. Duration of sedation 120 minutes. JAYCOBL / SURJITN: [id number] / ENA
[2020-09-25 14:29] LABS: Glucose,Whole Blood 130 mg/dL (75-99)
[2020-09-25 15:27] VITALS: RESP 15
[2020-09-25 16:10] VITALS: BP 120/62; PULSE 64
--- NOTE | 2020-09-25 16:13 | P.DS ---
Providers Date of admission: 09/24/20 20:32 Expected date of discharge: 09/25/20 Attending physician: Carter Phelan MD Consults: 09/24/20 22:38 Consult Physician Routine Consulting Provider: Germain Andrew Consult Reason/Comments: Post Interventional patient Do you want consulting provider notified?: Already Contacted 09/25/20 13:36 Consult Physician Routine Consulting Provider: Germain Andrew Consult Reason/Comments: Post Interventional patient Do you want consulting provider notified?: Already Contacted Primary care physician: Physician Nonstaff Hospital Course: Discharge Diagnosis: #STEMI with Right coronary artery dissection status post PCI 4 #Leukocytosis likely reactive #Hyperglycemia likely due to stress: Hemoglobin A1c is 6.0 #Hypertension #Hyperlipidemia Hospital Course: Patient is a 70-year-old female with a past medical history of coronary artery disease, hypertension, hyperlipidemia who presented to the ED with chest pain. In the ED patient was found to have a STEMI. Patient was taken emergently to the [facility]. Patient had PCI 4. During the [facility] procedure patient was noted to have RCA dissection of unknown etiology which resolved during the catheterization with stenting. The following day patient was again having chest pain. She was taken back for a repeat left heart catheterization. Patient was found to have worsening dissection in the right coronary artery. This time restenting was unsuccessful. Cardiology recommended transfer. Patient has been accepted at [facility]. Please see H&P for physical exam done by Dr. Phelan A total of 32 minutes of time were spent preparing this complex discharge summary . Plan - Discharge Summary Discharge Rx Participant: Yes New Discharge Prescriptions: New Spironolactone [Aldactone] 25 mg PO DAILY tab Aspirin 81 mg PO DAILY chew Ticagrelor [Brilinta] 90 mg PO BID tab Atorvastatin [Lipitor] 80 mg PO HS tab Metoprolol Tartrate [Lopressor] 25 mg PO BID tab lisinopriL [Zestril] 2.5 mg PO DAILY tab Continue Nitroglycerin Sl Tabs [Nitrostat] 0.4 mg SL Q5M PRN PRN Reason: Chest Pain Atorvastatin [Lipitor] 40 mg PO HS Discontinued atenoloL [Tenormin] 25 mg PO BID Aspirin EC [Ecotrin Low Dose] 243 mg PO HS Discharge Medication List Nitroglycerin Sl Tabs [Nitrostat] 0.4 mg SL Q5M PRN 05/25/14 [History] Atorvastatin [Lipitor] 40 mg PO HS 01/24/16 [History] Aspirin 81 mg PO DAILY chew 09/25/20 [Rx] Atorvastatin [Lipitor] 80 mg PO HS tab 09/25/20 [Rx] Metoprolol Tartrate [Lopressor] 25 mg PO BID tab 09/25/20 [Rx] Spironolactone [Aldactone] 25 mg PO DAILY tab 09/25/20 [Rx] Ticagrelor [Brilinta] 90 mg PO BID tab 09/25/20 [Rx] lisinopriL [Zestril] 2.5 mg PO DAILY tab 09/25/20 [Rx] Follow up Appointment(s)/Referral(s): Nonstaff,Physician [Primary Care Provider] - 1-2 days Discharge Disposition: OTHER INSTITUTION NOT DEFINED
[2020-09-25] MEDS ORDERED: ATORVASTATIN 80 MG TAB PO SCH (21:00)
== END 2020-09-25 16:46 | disposition short-term general hospital (02) | DRG 246 ==
LOC: EC 19:05 → 2SICU 20:32
PROVIDERS: ADMIT Internal Medicine; ATTEND Internal Medicine
PROC: 027137Z Dilation of Coronary Artery, Two Arteries with Four or More Drug-eluting Intraluminal Devices, Percutaneous Approach (ICD-10-PCS; principal; 2020-09-24 19:57)
PROC: B2111ZZ Fluoroscopy of Multiple Coronary Arteries using Low Osmolar Contrast (ICD-10-PCS; 2020-09-24 19:57)
PROC: 4A023N7 Measurement of Cardiac Sampling and Pressure, Left Heart, Percutaneous Approach (ICD-10-PCS; 2020-09-24 19:57)
PROC: 02JA3ZZ Inspection of Heart, Percutaneous Approach (ICD-10-PCS; 2020-09-25)
DX: I21.09 ST elevation (STEMI) myocardial infarction involving other coronary artery of anterior wall (principal); I25.42 Coronary artery dissection; I44.2 Atrioventricular block, complete; I25.10 Atherosclerotic heart disease of native coronary artery without angina pectoris; H40.20X0 Unspecified primary angle-closure glaucoma, stage unspecified; I10 Essential (primary) hypertension; E78.00 Pure hypercholesterolemia, unspecified; R73.9 Hyperglycemia, unspecified; D72.829 Elevated white blood cell count, unspecified; E78.5 Hyperlipidemia, unspecified; K21.9 Gastro-esophageal reflux disease without esophagitis; Z79.02 Long term (current) use of antithrombotics/antiplatelets; Z79.82 Long term (current) use of aspirin; Z79.899 Other long term (current) drug therapy; Z82.49 Family history of ischemic heart disease and other diseases of the circulatory system; Z83.3 Family history of diabetes mellitus; Z95.5 Presence of coronary angioplasty implant and graft; Z20.828 Contact with and (suspected) exposure to other viral communicable diseases; Z90.49 Acquired absence of other specified parts of digestive tract; Z87.440 Personal history of urinary (tract) infections
CPT/HCPCS: 36415; 71045; 80048; 80053; 80061; 83036; 83735; 84484; 85025; 85347; 85610; 85730; 87635; 93005; 93306; 93458; 96365; 96375; 99291

== ENCOUNTER 2021-01-11 19:19 | Observation (INO) | payer MEDICARE ==
[2021-01-11] MEDS ORDERED: MECLIZINE 12.5 MG TAB PO STA (19:53)
[2021-01-11] MEDS ORDERED: SODIUM CHLORIDE 0.9% 500 ML 500 ML IV STA (19:53)
--- NOTE | 2021-01-11 20:03 | ED ---
General Adult HPI - General Chief complaint: Nausea/Vomiting/Diarrhea Stated complaint: Dizziness,Vomiting Time Seen by Provider: 01/11/21 19:46 Source: patient, family, EMS, RN notes reviewed Mode of arrival: EMS - History of Present Illness Initial comments: 70-year-old white female patient presents to the emergency room via EMS with complaints of dizziness that awoke her from her sleep at 4 AM. Patient states has had some nausea and vomiting but denies diarrhea , fevers, chest pain or shortness of breath. Patient has a history of coronary artery disease, angina, cardiac stents with most recent stent being placed in October of this year, and a stress test in November of this year. Patient states she feels like the room is spinning and it gets better when she closes her eyes. Patient denies loss of consciousness or syncope. States received her Covid vaccines a couple of months ago and has completed the series. Patient denies any sick contacts. Is alert and oriented 4 family member at bedside. -: hour(s) (20, started at 0400 this morning) Severity scale (1-10): 0 Associated Symptoms: denies other symptoms Treatments Prior to Arrival: other (iv fluids, zofran by EMS) - Related Data Home Medications Medication Instructions Recorded Confirmed Nitroglycerin Sl Tabs [Nitrostat] 0.4 mg SL Q5M PRN 05/25/14 01/11/21 Metoprolol Succinate (ER) [Toprol 25 mg PO DAILY 01/11/21 01/11/21 Xl] Previous Rx's Medication Instructions Recorded Aspirin 81 mg PO DAILY chew 09/25/20 Atorvastatin [Lipitor] 80 mg PO HS tab 09/25/20 Ticagrelor [Brilinta] 90 mg PO BID tab 09/25/20 Allergies Allergy/AdvReac Type Severity Reaction Status Date / Time No Known Allergies Allergy Verified 01/11/21 21:20 Review of Systems ROS Statement: Those systems with pertinent positive or pertinent negative responses have been documented in the HPI. ROS Other: All systems not noted in ROS Statement are negative. Past Medical History Past Medical History: Coronary Artery Disease (CAD), Chest Pain / Angina, Hyperlipidemia, Hypertension, Syncope Additional Past Medical History / Comment(s): Pt recently admitted 01/10/16 and had negative stress test, positive for UTI and completed ABX. History of Any Multi-Drug Resistant Organisms: None Reported Past Surgical History: Section, Cholecystectomy, Heart Catheterization With Stent Additional Past Surgical History / Comment(s): 2001 PCI with stent to LAD, PROCERDURE FOR NARROW ANGLE GLAUCOMA bilateral eyes, x 3, 5 cardiac stents placed september 2020 Past Anesthesia/Blood Transfusion Reactions: No Reported Reaction Date of Last Stent Placement:: 2001 Past Psychological History: No Psychological Hx Reported Smoking Status: Never smoker Past Alcohol Use History: None Reported Past Drug Use History: None Reported - Past Family History Father History Unknown: Yes Family Medical History: Congestive Heart Failure (CHF), Diabetes Mellitus Additional Family Medical History / Comment(s): AT AGE 70 Mother History Unknown: Yes Additional Family Medical History / Comment(s): AT AGE 70 DURING CATH/PTBA HAD 4 BLOCKAGES AND HAD A MASSIVE AR IN OR. General Exam General appearance: alert Head exam: Present: atraumatic, normocephalic, normal inspection Eye exam: Present: normal appearance, PERRL, EOMI. Absent: scleral icterus, conjunctival injection, periorbital swelling ENT exam: Present: normal exam, normal oropharynx, mucous membranes moist Neck exam: Present: normal inspection, full ROM. Absent: tenderness, meningismus, lymphadenopathy Respiratory exam: Present: normal lung sounds bilaterally. Absent: respiratory distress, wheezes, rales, rhonchi, stridor Cardiovascular Exam: Present: regular rate, normal rhythm, normal heart sounds. Absent: systolic murmur, diastolic murmur, rubs, gallop, clicks, JVD GI/Abdominal exam: Present: soft, normal bowel sounds. Absent: distended, tenderness, guarding, rebound, rigid Neurological exam: Present: alert, oriented X3, CN II-XII intact Psychiatric exam: Present: normal affect, normal mood Skin exam: Present: warm, dry, intact, normal color. Absent: rash Course Vital Signs 01/11/21 01/11/21 01/11/21 19:21 20:00 21:00 Temperature 97.6 F Pulse Rate 66 70 65 Respiratory 18 18 18 Rate Blood Pressure 142/77 135/64 125/68 O2 Sat by Pulse 98 96 96 Oximetry 01/11/21 01/11/21 22:00 23:00 Temperature Pulse Rate 60 54 L Respiratory 18 18 Rate Blood Pressure 116/65 116/57 O2 Sat by Pulse 96 96 Oximetry - Reevaluation(s) Reevaluation #1: 01/11/21 22:48 Patient states she did get some relief with droperidol but remains dizzy. CT is negative for intracranial process, masses or shift. There is cerumen in the left auditory canal which will be irrigated Time: 22:48 EKG Findings - EKG Results: EKG: sinus rhythm (Ventricular rate is 61, MO interval 0.170, QRS of 0.66, QTC 0.440, normal sinus rhythm), no acute changes (09/24/2020) Medical Decision Making - Medical Decision Making Patient did get some relief with Antivert. WBC count of 15.3 with a left shift, troponin 0.012, potassium is 5.5 elevated from September result of 4.5. EKG shows normal sinus rhythm with no acute changes CT of the brain shows no intracranial hemorrhage, no mass, no midline shift. There is soft tissue density likely cerumen in the left external auditory canal, offered injury irrigation and patient refused. Patient states she felt a little better after Antivert and droperidol, however once she sat her up on the bed she had worsening vertigo, states room was spinning and became very nauseated. Case discussed with Dr. Martínez, will admit patient for vertigo - Lab Data Result diagrams: 01/11/21 20:16 01/11/21 20:16 Lab Results 01/11/21 01/11/21 01/11/21 Range/Units 20:16 20:16 20:16 WBC 15.3 H (3.8-10.6) k/uL RBC 4.94 (3.80-5.40) m/uL Hgb 13.7 (11.4-16.0) gm/dL Hct 42.8 (34.0-46.0) % MCV 86.5 (80.0-100.0) fL MCH 27.8 (25.0-35.0) pg MCHC 32.1 (31.0-37.0) g/dL RDW 14.0 (11.5-15.5) % Plt Count 309 (150-450) k/uL MPV 8.6 Neutrophils % 88 % Lymphocytes % 7 % Monocytes % 2 % Eosinophils % 2 % Basophils % 0 % Neutrophils # 13.5 H (1.3-7.7) k/uL Lymphocytes # 1.1 (1.0-4.8) k/uL Monocytes # 0.3 (0-1.0) k/uL Eosinophils # 0.3 (0-0.7) k/uL Basophils # 0.0 (0-0.2) k/uL PT 10.8 (9.0-12.0) sec INR 1.0 (<1.2) Sodium 139 (137-145) mmol/L Potassium 5.5 H (3.5-5.1) mmol/L Chloride 104 (98-107) mmol/L Carbon Dioxide 25 (22-30) mmol/L Anion Gap 10 mmol/L BUN 12 (7-17) mg/dL Creatinine 0.57 (0.52-1.04) mg/dL Est GFR (CKD-EPI)AfAm >90 (>60 ml/min/1.73 sqM) Est GFR (CKD-EPI)NonAf >90 (>60 ml/min/1.73 sqM) Glucose 122 H (74-99) mg/dL Calcium 9.2 (8.4-10.2) mg/dL Total Bilirubin 1.0 (0.2-1.3) mg/dL AST 48 H (14-36) U/L ALT 24 (4-34) U/L Alkaline Phosphatase 211 H (38-126) U/L Troponin I (0.000-0.034) ng/mL Total Protein 7.9 (6.3-8.2) g/dL Albumin 4.3 (3.5-5.0) g/dL 01/11/21 Range/Units 20:16 WBC (3.8-10.6) k/uL RBC (3.80-5.40) m/uL Hgb (11.4-16.0) gm/dL Hct (34.0-46.0) % MCV (80.0-100.0) fL MCH (25.0-35.0) pg MCHC (31.0-37.0) g/dL RDW (11.5-15.5) % Plt Count (150-450) k/uL MPV Neutrophils % % Lymphocytes % % Monocytes % % Eosinophils % % Basophils % % Neutrophils # (1.3-7.7) k/uL Lymphocytes # (1.0-4.8) k/uL Monocytes # (0-1.0) k/uL Eosinophils # (0-0.7) k/uL Basophils # (0-0.2) k/uL PT (9.0-12.0) sec INR (<1.2) Sodium (137-145) mmol/L Potassium (3.5-5.1) mmol/L Chloride (98-107) mmol/L Carbon Dioxide (22-30) mmol/L Anion Gap mmol/L BUN (7-17) mg/dL Creatinine (0.52-1.04) mg/dL Est GFR (CKD-EPI)AfAm (>60 ml/min/1.73 sqM) Est GFR (CKD-EPI)NonAf (>60 ml/min/1.73 sqM) Glucose (74-99) mg/dL Calcium (8.4-10.2) mg/dL Total Bilirubin (0.2-1.3) mg/dL AST (14-36) U/L ALT (4-34) U/L Alkaline Phosphatase (38-126) U/L Troponin I <0.012 (0.000-0.034) ng/mL Total Protein (6.3-8.2) g/dL Albumin (3.5-5.0) g/dL Disposition Clinical Impression: Vertigo, Hyperkalemia Disposition: ADMITTED IP TO THIS HOSP Condition: Fair Is patient prescribed a controlled substance at d/c from ED?: No Referrals: July Jackson MD [Primary Care Provider] - 1-2 days Decision Date: 01/12/21 Decision Time: 00:14
[2021-01-11 20:45] LABS: Basophils % (A) 0 %; Eosinophils # (A) 0.3 k/uL (0-0.7); Eosinophils % (A) 2 %; HCT 42.8 % (34.0-46.0); HGB 13.7 gm/dL (11.4-16.0); Lymphocytes # (A) 1.1 k/uL (1.0-4.8); Lymphocytes % (A) 7 %; MCH 27.8 pg (25.0-35.0); MCHC 32.1 g/dL (31.0-37.0); MCV 86.5 fL (80.0-100.0); Mean Platelet Volume 8.6; Monocytes # (A) 0.3 k/uL (0-1.0); Monocytes % (A) 2 %; Neutrophils # (A) 13.5 k/uL (1.3-7.7); Neutrophils % (A) 88 %; Platelet Count 309 k/uL (150-450); RBC 4.94 m/uL (3.80-5.40); WBC 15.3 k/uL (3.8-10.6)
[2021-01-11 20:55] LABS: ALT 24 U/L (4-34); AST 48 U/L (14-36); African American GFR (CKD) >90 (>60 ml/min/1.73 sqM); Albumin 4.3 g/dL (3.5-5.0); Alkaline Phosphatase 211 U/L (38-126); Anion Gap 10 mmol/L; Blood Urea Nitrogen 12 mg/dL (7-17); Calcium 9.2 mg/dL (8.4-10.2); Carbon Dioxide 25 mmol/L (22-30); Chloride 104 mmol/L (98-107); Glucose 122 mg/dL (74-99); Non-African American GFR(CKD) >90 (>60 ml/min/1.73 sqM); Sodium 139 mmol/L (137-145); Total Protein 7.9 g/dL (6.3-8.2)
[2021-01-11 20:59] LABS: Potassium 5.5 mmol/L (3.5-5.1)
[2021-01-11 21:25] LABS: Prothrombin Time 10.8 sec (9.0-12.0)
--- NOTE | 2021-01-11 22:08 | CT ---
EXAMINATION TYPE: CT brain wo con DATE OF EXAM: 01/11/2021 HISTORY: DIZZY. CT DLP: 1044.4 mGycm. Automated Exposure Control for Dose Reduction was Utilized. TECHNIQUE: CT scan of the head is performed without contrast. COMPARISON: None FINDINGS: There is no acute intracranial hemorrhage, midline shift, or mass effect identified. There is calcifi cation of the bilateral basal ganglia. The ventricles, sulci, and cisterns are normal in size and configuration. No abnormal extra-axial fluid collection. No depressed calvarial fracture. The globes are grossly sym metric. Visualized sinuses and mastoid air cells are clear. Soft tissue density within the left exte rnal auditory canal. IMPRESSION: 1. No acute intracranial hemorrhage, midline shift, or mass effect. 2. Soft tissue density within the left external auditory canal likely represents significant cerumen.
[2021-01-12] MEDS ORDERED: ASPIRIN 325 MG TAB PO STA (00:05)
[2021-01-12] MEDS: SODIUM CHLORIDE 0.9% 1,000 ML IV SCH ×3 (00:24→20:30)
[2021-01-12] MEDS ORDERED: MECLIZINE 25 MG TAB PO PRN (09:51)
[2021-01-12] MEDS: METOPROLOL SUCCINATE (ER) 25 MG TAB.ER.24H PO SCH (10:02)
[2021-01-12] MEDS: TICAGRELOR 90 MG TAB PO SCH ×2 (11:34→21:23)
[2021-01-12 13:25] LABS: Potassium 4.2 mmol/L (3.5-5.1)
--- NOTE | 2021-01-12 13:40 | US ---
EXAMINATION TYPE: US carotid duplex BILAT DATE OF EXAM: 01/12/2021 COMPARISON: NONE CLINICAL HISTORY: vertigo. dizziness EXAM MEASUREMENTS: RIGHT: Peak Systolic Velocity (PSV) cm/sec ----- Right CCA: 85.1 ----- Right ICA: 125 ----- Right ECA: 174 ICA/CCA ratio: 1.5 RIGHT: End Diastole cm/sec ----- Right CCA: 18.2 ----- Right ICA: 21.4 ----- Right ECA: 19.9 LEFT: Peak Systolic Velocity (PSV) cm/sec ----- Left CCA: 90.1 ----- Left ICA: 107 ----- Left ECA: 245 ICA/CCA ratio: 1.2 LEFT: End Diastole cm/sec ----- Left CCA: 23.5 ----- Left ICA: 35.6 ----- Left ECA: 16.6 VERTEBRALS (direction of flow): Right Vertebral: Antegrade Left Vertebral: Antegrade Rhythm: Normal Grayscale, color Doppler, spectral Doppler imaging performed of the carotid arteries. Waveform analys is does not show significant stenosis of the internal carotid arteries. Moderate plaque right bifurca tion. Mild plaque left bifurcation. increased velocities bilateral ECA's IMPRESSION: No hemodynamic significant stenosis of the proximal internal carotid arteries by Doppler criteria, an indirect measurement of carotid stenosis Criteria for Assigning % of Stenosis / Diameter reduction (Estimation based on the indirect measurements of the internal carotid artery velocities (ICA PSV). 1. Normal (no stenosis)=ICA PSV < 125 cm/s: ratio < 2.0: ICA EDV<40 cm/s. 2. Less than 50% stenosis=ICA PSV < 125 cm/s: ratio < 2.0: ICA EDV<40 cm/s. 3. 50 to 69% stenosis=ICA PSV of 125 to 230 cm/s: ration 2.0 ? 4.0: ICA EDV 40-100 cm/s. 4. Greater than 70% stenosis to near occlusion= ICA PSV > 230 cm/s: ratio > 4.0: ICA EDV > 100 cm/s. 5. Near occlusion= ICA PSV velocities may be low or undetectable: variable ratio and ICA EDV. 6. Total occlusion=unable to detect flow.
[2021-01-12] MEDS: MECLIZINE 25 MG TAB PO SCH ×2 (15:58→21:23)
[2021-01-12 18:39] LABS: Folate, Serum 14.3 ng/mL
[2021-01-12] MEDS: ASPIRIN 325 MG TAB PO SCH (21:23)
[2021-01-12] MEDS: ATORVASTATIN 80 MG TAB PO SCH (21:23)
--- NOTE | 2021-01-13 01:13 | P.HPIM ---
History of Present Illness H&P Date: 01/12/21 Chief Complaint: Dizziness Dizziness Ms. Keita is a 70-year-old female with a past medical history of coronary artery disease, hypertension, hyperlipidemia, ST elevation NM in Sep coming into the hospital with a chief complaint of dizziness. Patient states that she woke up from sleep around 4 AM with the dizziness along with some nausea. She did not throw up. Patient denied having any chest pain or difficulty in breathing. Patient states that she feels like the room is spinning, and it started yesterday morning. Patient thought her symptoms would resolve but by afternoon she continued to have her symptoms so she called EMS and brought in for further evaluation. Patient denied having any syncopal episodes. She denied having any headaches or blurring of vision. She felt slightly nauseous but did not throw up she denied having any abdominal pain vomiting or diarrhea. She denied having any swelling of her lower extremities. At the time of admission her temperature is 97.6, heart rate 66, respiratory rate 18, blood pressure 142 x 77 saturating at 98% on room air. She had a CAT scan of the brain that was negative for any acute intracranial hemorrhage but showed significant cerumen in the left external auditory canal. On reviewing the labs white count of 15.3, hemoglobin 13.7, platelets 309. INR 1. Sodium 139, potassium 4.5, chloride 104, bicarb 25, BUN 10, creatinine 0.57, AST 48, ALT 24, alkaline phosphatase 211, troponin less than 0.012x3 vitamin B12 252, folate 14, TSH 1.54. Coronavirus negative. Review of Systems Constitutional: Reports no fatigue, Reports no weakness, Denies chills, Denies fever Eyes: denies blurred vision, denies pain Ears, nose, mouth and throat: Denies headache, Denies sore throat Cardiovascular: Denies chest pain, Denies shortness of breath Respiratory: Reports no cough with sputum, Reports no dyspnea Gastrointestinal: Denies abdominal pain, Denies diarrhea, Denies vomiting Genitourinary: Denies dysuria, Denies hematuria Musculoskeletal: Denies myalgias Integumentary: Denies pruritus, Denies rash Neurological: Denies numbness, Denies weakness Psychiatric: Denies anxiety, Denies depression Endocrine: Denies fatigue, Denies weight change Past Medical History Past Medical History: Coronary Artery Disease (CAD), Chest Pain / Angina, Hyperlipidemia, Hypertension, Syncope Additional Past Medical History / Comment(s): Pt recently admitted 01/10/16 and had negative stress test, positive for UTI and completed ABX. 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 She is independent. She uses no assistive device. She drives. Smoking Status: Never smoker Past Alcohol Use History: None Reported Past Drug Use History: None Reported - Past Family History Father History Unknown: Yes Family Medical History: Congestive Heart Failure (CHF), Diabetes Mellitus Additional Family Medical History / Comment(s): AT AGE 70 Mother History Unknown: Yes Additional Family Medical History / Comment(s): AT AGE 70 DURING CATH/PTBA HAD 4 BLOCKAGES AND HAD A MASSIVE NM IN OR. Medications and Allergies Home Medications Medication Instructions Recorded Confirmed Type Nitroglycerin Sl Tabs [Nitrostat] 0.4 mg SL Q5M PRN 05/25/14 01/11/21 History Aspirin 81 mg PO DAILY chew 09/25/20 01/11/21 Rx Atorvastatin [Lipitor] 80 mg PO HS tab 09/25/20 01/11/21 Rx Ticagrelor [Brilinta] 90 mg PO BID tab 09/25/20 01/11/21 Rx Metoprolol Succinate (ER) [Toprol 25 mg PO DAILY 01/11/21 01/11/21 History Xl] Allergies Allergy/AdvReac Type Severity Reaction Status Date / Time No Known Allergies Allergy Verified 01/11/21 21:20 Physical Exam Vitals: Vital Signs Temp Pulse Pulse Pulse Resp BP BP 01/12/21 08:00 18 01/12/21 07:28 97.5 F L 75 67 18 168/105 01/12/21 06:59 97.3 F L 69 18 139/78 01/12/21 02:00 97 F L 68 18 154/77 01/12/21 00:25 98.0 F 66 18 140/75 01/11/21 23:00 54 L 18 116/57 01/11/21 22:00 60 18 116/65 01/11/21 21:00 65 18 125/68 01/11/21 20:00 70 18 135/64 01/11/21 19:21 97.6 F 66 18 142/77 BP Pulse Ox 01/12/21 08:00 01/12/21 07:28 149/69 95 01/12/21 06:59 98 01/12/21 02:00 97 01/12/21 00:25 95 01/11/21 23:00 96 01/11/21 22:00 96 01/11/21 21:00 96 01/11/21 20:00 96 01/11/21 19:21 98 Intake and Output 01/11/21 01/12/21 01/12/21 22:59 06:59 14:59 Other: Weight 84.368 kg 84.368 kg GENERAL: The patient is alert and oriented x3, not in any acute distress. Well developed, well nourished. HEENT: Pupils are round and equally reacting to light. EOMI. No scleral icterus. No conjunctival pallor. CARDIOVASCULAR: S1 and S2 present. No murmurs, rubs, or gallops. PULMONARY: Chest is clear to auscultation, no wheezing or crackles. ABDOMEN: Soft, nontender, nondistended, normoactive bowel sounds. No palpable organomegaly. MUSCULOSKELETAL: No joint swelling or deformity. EXTREMITIES: No cyanosis, clubbing, or pedal edema. NEUROLOGICAL: Gross neurological examination did not reveal any focal deficits. Strenght 5/5 in all 4 extremities [place]- Kirkpatrick pike Manuver + dizzinees , No nystagmus SKIN: No rashes. no petechiae. Results CBC & Chem 7: 01/13/21 05:18 01/13/21 05:18 Labs: Abnormal Lab Results - Last 24 Hours (Table) 01/11/21 01/11/21 Range/Units 20:16 20:16 WBC 15.3 H (3.8-10.6) k/uL Neutrophils # 13.5 H (1.3-7.7) k/uL Potassium 5.5 H (3.5-5.1) mmol/L Glucose 122 H (74-99) mg/dL AST 48 H (14-36) U/L Alkaline Phosphatase 211 H (38-126) U/L Thrombosis Risk Factor Assmnt - Choose All That Apply Any of the Below Risk Factors Present?: Yes Each Factor Represents 1 point: Obesity (BMI >25) Other Risk Factors: Yes Each Risk Factor Represents 2 Points: Age 61-74 years Other congenital or acquired thrombophilia - If yes, enter type in comment: No Thrombosis Risk Factor Assessment Total Risk Factor Score: 3 Thrombosis Risk Factor Assessment Level: Moderate Risk Assessment and Plan Assessment: ASSESSMENT Acute dizziness Coronary artery disease status post stenting Hyperlipidemia Obesity with BMI of 31.9 Leukocytosis PLAN: Patient had a CAT scan of the head that was negative for any acute intracranial process. She has left-sided cerumen so we will do irrigation of the left ear canal. Patient received a dose of meclizine in the ER and she states that it helped her so we will continue with symptomatic management. Patient was restarted on her home medication. Patient had dizziness with [place]- Hallpike maneuver but no nystagmus. Neurology has been consulted. Further recommendations to follow depending on the progress of the patient.
--- NOTE | 2021-01-13 01:18 | P.CNNES ---
History of Present Illness Consult date: 01/12/21 Requesting physician: Akbar Martínez Reason for Consult: Vertigo History of Present Illness: Patient is a 70-year-old female came to the hospital by ambulance yesterday at 7 PM for dizziness, vertigo and vomiting. Patient states that she woke up at 4 AM and felt the yuen were spinning. She also had nausea, with vomiting about 4 times. She stayed in the bed whole day, couldn't get up. She denied any numbness tingling focal weakness, any problem with the vision like diplopia, and double vision blurred vision or loss of vision. She stayed in bed most of the day and when the symptoms persisted, she called the ambulance. Patient states that she could not get up, EMS had to put her out and she couldn't stand because of dizziness. As per EMS flow sheet, when they arrived, found 70-year-old female alert and oriented 4, GCS 15, complaining of dizziness and vomiting all day. Patient states that the dizziness began last night. The vomiting began this morning. Patient has mentioned that she gets a little bit of relief by lying down but has not been able to stop vomiting. Patient denies any chest pain, difficulty breathing, shortness of breath or weakness. EKG rhythm lead sinus rhythm. Patient's blood pressure at the scene was 151/85, pulse rate 73, respirations 16 saturation 97% blood sugar 168. Vital signs on arrival blood pressure 142/77, pulse rate 66, temperature 97.6. Patient's pulse rate did go down to 54. Patient's orthostatics with blood pressure supine 149/69, on sitting up was 168/105. CT head showed no acute intracranial hemorrhage, midline shift or mass effect. Soft tissue density within the left external auditory canal likely representing significant cerumen. There is some basal ganglial calcifications bilaterally. I reviewed computed tomography scan and agree with the findings. Paranasal sinuses are clear. No hydrocephalus. No acute process. Patient had a 2-D echo performed on 09/25/2020, which revealed normal left ventricle size. Moderate concentric LVH. EF is 50-55%. Apical anterior, apical septum yuen are hypokinetic. Trace AR, mild MR. Patient's blood test shows WBC 15.3 hemoglobin 13.7, platelets 309. PT/INR are normal. Sodium 139 potassium 5.5, normal renal functions. AST is 48, ALT 24, troponins negative. Daniel virus PCR negative. Patient's last hemoglobin A1c 6.0 on 09/25/2020. Lipid panel with cholesterol 173, LDL 88, HDL 70 and triglycerides 77. Patient denies any tinnitus, loss of hearing or feeling any fluid or pops or pain in her ears. At present she is dizzy just laying there, but denies any spinning, until she moves her head to the right or left. Patient denies any episodes of vertigo ever in the past. Denies any head trauma in the last 6 months. Denies any recent upper respiratory infection. She had vaccination for Covid-19 about 1-1/2 months ago and the second shot was given 2 weeks later. She received Moderna. No problems after the shots. Patient has history of hypertension, coronary artery disease and 5 stents in the heart. Review of Systems As mentioned in detail in HPI. All other 14 point of review systems were reviewed, unremarkable or noncontributory to current illness. Past Medical History Past Medical History: Coronary Artery Disease (CAD), Chest Pain / Angina, Hyperlipidemia, Hypertension, Syncope Additional Past Medical History / Comment(s): Pt recently admitted 01/10/16 and had negative stress test, positive for UTI and completed ABX. 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 She is independent. She uses no assistive device. She drives. Smoking Status: Never smoker Past Alcohol Use History: None Reported Past Drug Use History: None Reported - Past Family History Father History Unknown: Yes Family Medical History: Congestive Heart Failure (CHF), Diabetes Mellitus Additional Family Medical History / Comment(s): AT AGE 70 Mother History Unknown: Yes Additional Family Medical History / Comment(s): AT AGE 70 DURING CATH/PTBA HAD 4 BLOCKAGES AND HAD A MASSIVE CO IN OR. Medications and Allergies Home Medications Medication Instructions Recorded Confirmed Type Nitroglycerin Sl Tabs [Nitrostat] 0.4 mg SL Q5M PRN 05/25/14 01/11/21 History Aspirin 81 mg PO DAILY chew 09/25/20 01/11/21 Rx Atorvastatin [Lipitor] 80 mg PO HS tab 09/25/20 01/11/21 Rx Ticagrelor [Brilinta] 90 mg PO BID tab 09/25/20 01/11/21 Rx Metoprolol Succinate (ER) [Toprol 25 mg PO DAILY 01/11/21 01/11/21 History Xl] Allergies Allergy/AdvReac Type Severity Reaction Status Date / Time No Known Allergies Allergy Verified 01/11/21 21:20 Physical Examination - Vital Signs Vital Signs: Vital Signs Temp Pulse Pulse Pulse Resp BP BP 01/12/21 08:00 18 01/12/21 07:28 97.5 F L 75 67 18 168/105 01/12/21 06:59 97.3 F L 69 18 139/78 01/12/21 02:00 97 F L 68 18 154/77 01/12/21 00:25 98.0 F 66 18 140/75 01/11/21 23:00 54 L 18 116/57 01/11/21 22:00 60 18 116/65 01/11/21 21:00 65 18 125/68 01/11/21 20:00 70 18 135/64 01/11/21 19:21 97.6 F 66 18 142/77 BP Pulse Ox 01/12/21 08:00 01/12/21 07:28 149/69 95 01/12/21 06:59 98 01/12/21 02:00 97 01/12/21 00:25 95 01/11/21 23:00 96 01/11/21 22:00 96 01/11/21 21:00 96 01/11/21 20:00 96 01/11/21 19:21 98 Intake and Output 01/11/21 01/12/21 01/12/21 22:59 06:59 14:59 Other: Weight 84.368 kg 84.368 kg On examination patient is an elderly female, very pleasant, in no acute distress. Patient is alert, awake, oriented to time place and person. Speech and language functions are normal. Attention, concentration and fund of knowledge is adequate. She knows it is 01/11/2021 and that she is in [facility]. On cranial nerve examination pupils are round and reacting to light, visual davidson are full on confrontation, extraocular muscles are intact with slight downbeat nystagmus on the right and case, with nystagmus on the left as well. Face is symmetric, tongue protrudes to the midline. Palatal elevation and sensation normal, hearing for normal conversation is intact, but is slightly decreased for finger rubbing. Her shoulder shrug normal, facial sensation normal. On muscle strength testing there is no pronator drift and the strength is normal in arms and legs distally and proximally. Reflexes are 1+ in the upper limbs, 2+ at the knees, 2 at ankles and plantars downgoing. No ataxia for [id number] or [id number] testing, tone and bulk of muscles normal. Sensory to touch is equal with no neglect. Patient has walked to the bathroom earlier with the nurse, but was slight imbalance because of dizziness. On general examination there is no carotid bruit or murmur, peripheral pulses are present. No edema. Abdomen soft nontender. Results - Laboratory Findings CBC and BMP: 01/11/21 20:16 01/12/21 12:25 Abnormal Lab Findings: Abnormal Labs 01/11/21 01/11/21 20:16 20:16 WBC 15.3 H Neutrophils # 13.5 H Potassium 5.5 H Glucose 122 H AST 48 H Alkaline Phosphatase 211 H Assessment and Plan Assessment: * Vertigo, probably due to viral labyrinthitis * Cerumen impaction left external auditory canal * Coronary artery disease * Hypertension * Hyperlipidemia * Obesity Plan: * Patient has probable labyrinthitis. Patient will continue Antivert 25 mg every 8 hours. * Patient also has wax impaction in the left external auditory canal. Patient needs disimpaction of the left ear wax, as it may be contributing to the vertigo. This can be performed in the hospital if possible, otherwise May need ENT consult. * Carotid Doppler was performed. It revealed no hemodynamic significant stenosis of the proximal ICA. Antegrade flow in both vertebral arteries. * Patient underwent blood testing including B12 252, which is very low, we will start B12 1000 g IM weekly and then monthly. Folic acid 14.3, TSH 1.54. * If symptoms persist, would recommend Medrol Dosepak. * Neurologically clear, when her symptoms resolves.
[2021-01-13] MEDS: CYANOCOBALAMIN 1,000 MCG/ML 1 ML VIAL IM SCH (07:33)
[2021-01-13] MEDS: METOPROLOL SUCCINATE (ER) 25 MG TAB.ER.24H PO SCH (07:33)
[2021-01-13] MEDS: SODIUM CHLORIDE 0.9% 1,000 ML IV SCH ×2 (07:34→16:18)
[2021-01-13] MEDS: MECLIZINE 25 MG TAB PO SCH ×3 (07:34→22:03)
[2021-01-13] MEDS: TICAGRELOR 90 MG TAB PO SCH ×2 (07:34→22:03)
[2021-01-13 10:10] LABS: Basophils # (A) 0.04 X 10*3/uL (0.00-0.10); Basophils % (A) 0.4 %; Eosinophils # (A) 0.32 X 10*3/uL (0.04-0.35); Eosinophils % (A) 2.8 %; HCT 37.3 % (37.2-46.3); HGB 11.8 g/dL (12.0-15.0); Lymphocytes # (A) 2.87 X 10*3/uL (0.90-5.00); Lymphocytes % (A) 25.2 %; MCH 28.1 pg (27.0-32.0); MCHC 31.6 g/dL (32.0-37.0); MCV 88.8 fL (80.0-97.0); Mean Platelet Volume 11.7 fL (9.5-12.2); Monocytes # (A) 0.87 X 10*3/uL (0.20-1.00); Monocytes % (A) 7.7 %; Neutrophils # (A) 7.24 X 10*3/uL (1.80-7.70); Neutrophils % (A) 63.6 %; Platelet Count 259 X 10*3/uL (140-440); RDW 15.2 % (11.5-14.5); WBC 11.37 X 10*3/uL (4.50-10.00)
[2021-01-13 11:28] LABS: African American GFR (CKD) 101.7 (60.0-200.0); Albumin 3.7 g/dL (3.80-4.90); Albumin/Globulin Ratio 1.95 (1.60-3.17); BUN/Creat Ratio 17.14 Ratio (12.00-20.00); Calcium 8.9 mg/dL (8.7-10.3); Globulin 1.9 g/dL (1.6-3.3); Non-African American GFR(CKD) 87.8 (60.0-200.0); Potassium 3.9 mmol/L (3.5-5.5); Total Bilirubin 0.6 mg/dL (0.3-1.2); Total Protein 5.6 g/dL (6.2-8.2)
[2021-01-13] MEDS: CARBAMIDE PEROXIDE 6.5% DROPS 15 ML BTL LEFT EAR SCH ×2 (11:28→22:04)
--- NOTE | 2021-01-13 17:16 | P.PN ---
Subjective Progress Note Date: 01/13/21 Principal diagnosis: Acute dizziness Ms. Keita is a 70-year-old female with a past medical history of coronary artery disease, hypertension, hyperlipidemia, ST elevation [place] in Sep coming into the hospital with a chief complaint of dizziness. Patient states that she woke up from sleep around 4 AM with the dizziness along with some na usea. She did not throw up. Patient denied having any chest pain or difficulty in breathing. Patient states that she feels like the room is spinning, and it started yesterday morning. Patient thought her symptoms would resolve but by afternoon she continued to have her symptoms so she called EMS and brought in for further evaluation. Patient denied having any syncopal episodes. She denied having any headaches or blurring of vision. She felt slightly nauseous but did not throw up she denied having any abdominal pain vomiting or diarrhea. She denied having any swelling of her lower extremities. At the time of admission her temperature is 97.6, heart rate 66, respiratory rate 18, blood pressure 142 x 77 saturating at 98% on room air. She had a CAT scan of the brain that was negative for any acute intracranial hemorrhage but showed significant cerumen in the left external auditory canal. On reviewing the labs white count of 15.3, hemoglobin 13.7, platelets 309. INR 1. Sodium 1 39, potassium 4.5, chloride 104, bicarb 25, BUN 10, creatinine 0.57, AST 48, ALT 24, alkaline phosphatase 211, troponin less than 0.012x3 vitamin B12 252, folate 14, TSH 1.54. Coronavirus negative. On 01/13/2021- patient was seen and examined at bedside. As per nursing staff report, patient had irrigation of her left ear with chunks of cerumen removal. After the procedure she still had impacted cerumen in the left ear canal. She reports her dizziness is better compared to yesterday. She states that meclizine is helping her. Patient denies having any chest pain or palpitations. No cough or difficulty in breathing. No abdominal pain nausea vomiting or diarrhea. No dysuria or hematuria. On reviewing vitals temperature of 97.9, heart rate 68, respiratory rate 18, blood pressure 150/85, saturating 97% on room air. Last and this morning white count 11.37, hemoglobin 11.8, platelets 259. Sodium 142, potassium 3.9, chloride 110, bicarbonate 26, BNP 12, creatinine 0.7. Active Medications Aspirin (Aspirin 325 Mg Tab) 325 mg PO DAILY@2100 [facility] Last Admin: 01/12/21 21:23 Dose: 325 mg Documented by: Atorvastatin Calcium (Atorvastatin 80 Mg Tab) 80 mg PO HS [facility] Last Admin: 01/12/21 21:23 Dose: 80 mg Documented by: Carbamide Perox/Anhydrous Glycerin (Carbamide Peroxide 6.5% Drops 15 Ml Btl) 5 drops LEFT EAR BID [facility] Last Admin: 01/13/21 11:28 Dose: 5 drops Documented by: Cyanocobalamin (Cyanocobalamin 1,000 Mcg/Ml 1 Ml Vial) 1,000 mcg IM DAILY [facility] Last Admin: 01/13/21 07:33 Dose: 1,000 mcg Documented by: Sodium Chloride (Saline 0.9%) 1,000 mls @ 100 mls/hr IV .Q10H [facility] Last Admin: 01/13/21 16:18 Dose: 100 mls/hr Documented by: Meclizine HCl (Meclizine 25 Mg Tab) 25 mg PO TID [facility] Last Admin: 01/13/21 16:17 Dose: 25 mg Documented by: Metoprolol Succinate (Metoprolol Succinate (Er) 25 Mg Tab.Er.24h) 25 mg PO DAILY [facility] Last Admin: 01/13/21 07:33 Dose: 25 mg Documented by: Ticagrelor (Ticagrelor 90 Mg Tab) 90 mg PO BID [facility] Last Admin: 01/13/21 07:34 Dose: 90 mg Documented by: Objective - Vital Signs Vital signs: Vital Signs Temp 97.6 F 01/13/21 07:30 Pulse 67 01/13/21 08:00 Resp 18 01/13/21 08:00 BP 133/78 01/13/21 07:30 Pulse Ox 96 01/13/21 08:36 Intake & Output 01/12/21 01/13/21 01/13/21 18:59 06:59 18:59 Weight 84.368 kg Other: # Voids 2 2 - Exam GENERAL: The patient is alert and oriented x3, not in any acute distress. Well developed, well nourished. HEENT: Pupils are round and equally reacting to light. EOMI. No scleral icterus. No conjunctival pallor. CARDIOVASCULAR: S1 and S2 present. No murmurs, rubs, or gallops. PULMONARY: Chest is clear to auscultation, no wheezing or crackles. ABDOMEN: Soft, nontender, nondistended, normoactive bowel sounds. No palpable organomegaly. MUSCULOSKELETAL: No joint swelling or deformity. EXTREMITIES: No cyanosis, clubbing, or pedal edema. NEUROLOGICAL: Gross neurological examination did not reveal any focal deficits. Strenght 5/5 in all 4 extremities SKIN: No rashes. no petechiae. - Labs CBC & Chem 7: 01/13/21 05:18 01/13/21 05:18 Labs: Abnormal Lab Results - Last 24 Hours (Table) 01/13/21 Range/Units 05:18 WBC 11.37 H (4.50-10.00) X 10*3/uL Hgb 11.8 L (12.0-15.0) g/dL MCHC 31.6 L (32.0-37.0) g/dL RDW 15.2 H (11.5-14.5) % Assessment and Plan Assessment: ASSESSMENT Acute dizziness- probable labyrinthitis Impacted cerumen in left ear canal Coronary artery disease status post stenting Hyperlipidemia Obesity with BMI of 31.9 Leukocytosis PLAN: Patient had a CAT scan of the head that was negative for any acute intracranial process. Patient had left ear ear irrigation done yesterday with lots of cerumen removal. But she still has cerumen in her left ear canal on today's exam. So started on Debrox otic drops. Neurology has been consulted, they suggested to continue with meclizine. Patient also had bilateral carotid artery Doppler done that was negative for any stenosis. She has low B12 levels, started on B12 IM injections, received 1 dose. We'll continue with symptomatic management, to continue meclizine. Further recommendations to follow depending on the progress of the patient.
[2021-01-13] MEDS: ASPIRIN 325 MG TAB PO SCH (22:03)
[2021-01-13] MEDS: ATORVASTATIN 80 MG TAB PO SCH (22:09)
[2021-01-14] MEDS: SODIUM CHLORIDE 0.9% 1,000 ML IV SCH (03:06)
[2021-01-14 08:09] VITALS: TEMP 98
[2021-01-14] MEDS: METOPROLOL SUCCINATE (ER) 25 MG TAB.ER.24H PO SCH (09:50)
[2021-01-14] MEDS: TICAGRELOR 90 MG TAB PO SCH (09:50)
[2021-01-14] MEDS: CYANOCOBALAMIN 1,000 MCG/ML 1 ML VIAL IM SCH (09:50)
[2021-01-14] MEDS: MECLIZINE 25 MG TAB PO SCH (09:50)
[2021-01-14] MEDS: CARBAMIDE PEROXIDE 6.5% DROPS 15 ML BTL LEFT EAR SCH (09:51)
--- NOTE | 2021-01-14 11:28 | P.PN ---
Subjective Progress Note Date: 01/14/21 Patient states she is feeling 70% back to normal. No new symptoms. Still dizzy but not as bad. Objective - Vital Signs Vital signs: Vital Signs Temp 98.0 F 01/14/21 07:00 Pulse 66 01/14/21 07:00 Resp 20 01/14/21 07:00 BP 130/85 01/14/21 07:00 Pulse Ox 97 01/14/21 07:00 Intake & Output 01/13/21 01/14/21 01/14/21 18:59 06:59 18:59 Intake Total 300 240 Balance 300 240 Intake: Oral 300 240 Other: # Voids 2 1 - Exam Patient's mental status, speech and language functions are normal. Cranial nerves are normal. No nystagmus. Visual davidson are full. Extraocular muscles intact. Muscle strength is normal. No ataxia. Gait normal. - Labs CBC & Chem 7: 01/13/21 05:18 01/13/21 05:18 Labs: Abnormal Lab Results - Last 24 Hours (Table) 01/13/21 Range/Units 05:18 Chloride 110 H (96-109) mmol/L Alkaline Phosphatase 191 H (41-126) U/L Total Protein 5.6 L (6.2-8.2) g/dL Albumin 3.70 L (3.80-4.90) g/dL Assessment and Plan Assessment: * Vertigo, probably due to viral labyrinthitis * Cerumen impaction left external auditory canal * Vitamin B12 deficiency * Coronary artery disease * Hypertension * Hyperlipidemia * Obesity Plan: * Patient has probable labyrinthitis. Patient will continue Antivert 25 mg every 8 hours. * Patient also has wax impaction in the left external auditory canal. Patient needs disimpaction of the left ear wax, as it may be contributing to the vertigo. This can be performed in the hospital if possible, otherwise May need ENT consult. * Carotid Doppler was performed. It revealed no hemodynamic significant stenosis of the proximal ICA. Antegrade flow in both vertebral arteries. * Patient underwent blood testing including B12 252, which is very low, we will start B12 1000 g IM weekly and then monthly. Folic acid 14.3, TSH 1.54. * If symptoms persist, would recommend Medrol Dosepak. * Patient is 70% better. Hopefully will take another few days to a week for symptoms to resolve. * Neurologically clear, when her symptoms resolves.
[2021-01-14 15:54] VITALS: BP 131/77; PULSE 72; RESP 18
--- NOTE | 2021-01-14 17:33 | P.DS ---
Providers Date of admission: 01/12/21 00:05 Expected date of discharge: 01/14/21 Attending physician: Felix Aguirre Consults: 01/12/21 00:05 Consult Physician Routine Consulting Provider: Halima Bal Consult Reason/Comments: vertigo Do you want consulting provider notified?: Yes Primary care physician: Renetta Wan [facility] Hospital Course: Ms. Keita is a 70-year-old female with a past medical history of coronary artery disease, hypertension, hyperlipidemia, ST elevation [place] in Sep coming into the hospital with a chief complaint of dizziness. Patient states that she woke up from sleep around 4 AM with the dizziness along with some nausea. She did not throw up. Patient denied having any chest pain or difficulty in breathing. Patient states that she feels like the room is spinning, and it started yesterday morning. Patient thought her symptoms would resolve but by afternoon she continued to have her symptoms so she called EMS and brought in for further evaluation. Patient denied having any syncopal episodes. She denied having any headaches or blurring of vision. She felt slightly nauseous but did not throw up she denied having any abdominal pain vomiting or diarrhea. She denied having any swelling of her lower extremities. At the time of admission her temperature is 97.6, heart rate 66, respiratory rate 18, blood pressure 142 x 77 saturating at 98% on room air. She had a CAT scan of the brain that was negative for any acute intracranial hemorrhage but showed significant cerumen in the left external auditory canal. On reviewing the labs white count of 15.3, hemoglobin 13.7, platelets 309. INR 1. Sodium 139, potassium 4.5, chloride 104, bicarb 25, BUN 10, creatinine 0.57, AST 48, ALT 24, alkaline phosphatase 211, troponin less than 0.012x3 vitamin B12 252, folate 14, TSH 1.54. Coronavirus negative. Hospital Coure - Patient had a CAT scan of the head that was negative for any acute intracranial process. She has left-sided cerumen so irrigation of the left ear canal done with some cerumen removal. Patient received a dose of meclizine in the ER and she states that it helped and continued for symptomatic management. Patient was restarted on her home medication. Patient had dizziness with Ogden-Hallpike maneuver but no nystagmus. Neurology has been consulted. Recommended carotid artery Doppler performed showed no hemodynamic significant stenosis of the proximal ICA bilaterally. As a part of workup she had low levels of B12 at 252, so received an IM dose of B12 1000 micrograms. Patient's symptoms started to improve, cleared by neurology for discharge. Patient's advised to continue using the Debrox ear drops and follow up with PCP for another irrigation for removal of impacted cerumen. In case her symptoms worsen, she is advised to come back to the hospital. She is being discharged on meclizine, Debrox eardrops and B12 injections. Vital Signs 01/14/21 15:00 Temperature 98.0 F Pulse Rate [ 72 Pulse Oximetery ] Respiratory 18 Rate Blood Pressure 131/77 [Right Arm] O2 Sat by Pulse 96 Oximetry GENERAL: The patient is alert and oriented x3, not in any acute distress. Well developed, well nourished. HEENT: Pupils are round and equally reacting to light. EOMI. No scleral icterus. No conjunctival pallor. CARDIOVASCULAR: S1 and S2 present. No murmurs, rubs, or gallops. PULMONARY: Chest is clear to auscultation, no wheezing or crackles. EXTREMITIES: No cyanosis, clubbing, or pedal edema. NEUROLOGICAL: Patient was able to walk from one corner of the room to another without gait instability and dizziness. DISCHARGE DIAGNOSIS Acute dizziness/ Vertigo Coronary artery disease status post stenting Hyperlipidemia Obesity with BMI of 31.9 Leukocytosis Follow-up: Patient is advised to follow up with her PCP in 2-3 days. In case her symptoms worsen, she is advised to come back to the hospital. CC: Dr. July Jackson More than 35 minutes spent towards the discharge of the patient. Patient Condition at Discharge: Fair Plan - Discharge Summary Discharge Rx Participant: No New Discharge Prescriptions: New Carbamide Peroxide [Debrox Otic] 5 drops LEFT EAR BID 7 Days #1 bottle Meclizine [Antivert] 25 mg PO TID PRN #21 tab PRN Reason: Dizziness Cyanocobalamin [Vitamin B-12 Injection] 1,000 mcg SQ WEEKLY #3 vial Continue Nitroglycerin Sl Tabs [Nitrostat] 0.4 mg SL Q5M PRN PRN Reason: Chest Pain Aspirin 81 mg PO DAILY chew Ticagrelor [Brilinta] 90 mg PO BID tab Atorvastatin [Lipitor] 80 mg PO HS tab Metoprolol Succinate (ER) [Toprol XL] 25 mg PO DAILY Discharge Medication List Nitroglycerin Sl Tabs [Nitrostat] 0.4 mg SL Q5M PRN 05/25/14 [History] Aspirin 81 mg PO DAILY chew 09/25/20 [Rx] Atorvastatin [Lipitor] 80 mg PO HS tab 09/25/20 [Rx] Ticagrelor [Brilinta] 90 mg PO BID tab 09/25/20 [Rx] Metoprolol Succinate (ER) [Toprol XL] 25 mg PO DAILY 01/11/21 [History] Carbamide Peroxide [Debrox Otic] 5 drops LEFT EAR BID 7 Days #1 bottle 01/14/21 [Rx] Cyanocobalamin [Vitamin B-12 Injection] 1,000 mcg SQ WEEKLY #3 vial 01/14/21 [Rx] Meclizine [Antivert] 25 mg PO TID PRN #21 tab 01/14/21 [Rx] Follow up Appointment(s)/Referral(s): July Jackson MD [Primary Care Provider] - 1-2 days Patient Instructions/Handouts: Vertigo (DC) Discharge Disposition: HOME SELF-CARE
[2021-01-14] MEDS ORDERED: ASPIRIN 81 MG PO SCH (21:00)
== END 2021-01-14 17:03 | disposition home or self-care (01) ==
LOC: EC 19:19 → 6NMEDSUR 01-12 00:05
PROVIDERS: ADMIT Hospitalist; ATTEND Hospitalist
DX: R42 Dizziness and giddiness (principal); I25.10 Atherosclerotic heart disease of native coronary artery without angina pectoris; H61.22 Impacted cerumen, left ear; E66.9 Obesity, unspecified; E78.5 Hyperlipidemia, unspecified; D72.829 Elevated white blood cell count, unspecified; I10 Essential (primary) hypertension; I25.2 Old myocardial infarction; E87.5 Hyperkalemia; E53.8 Deficiency of other specified B group vitamins; H40.20X0 Unspecified primary angle-closure glaucoma, stage unspecified; Z68.31 Body mass index [BMI] 31.0-31.9, adult; Z20.822 Contact with and (suspected) exposure to COVID-19; Z79.02 Long term (current) use of antithrombotics/antiplatelets; Z79.82 Long term (current) use of aspirin; Z79.899 Other long term (current) drug therapy; Z87.440 Personal history of urinary (tract) infections; Z90.49 Acquired absence of other specified parts of digestive tract; Z98.891 History of uterine scar from previous surgery; Z95.5 Presence of coronary angioplasty implant and graft; Z83.3 Family history of diabetes mellitus; Z82.49 Family history of ischemic heart disease and other diseases of the circulatory system
CPT/HCPCS: 96361 ×2; 96372 ×2; 96374; 99285; 36415; 94760; 93005; 97162; 84207; 80053 ×2; 84443; 82607; 82746; 84132; 84484 ×2; 85025 ×2; 85610; 87635; 93880; 70450; G0378 ×3; J3420 ×2; J1790

== ENCOUNTER → 2021-10-10 | Outpatient (CLI) | payer MEDICARE ==
--- NOTE | 2021-10-10 10:07 | MM ---
Reason for exam: screening (asymptomatic). Last mammogram was performed 15 years ago. History: Patient is postmenopausal. Benign left mammotome panel of the left breast, June 09, 2005. Physical Findings: A clinical breast exam by your physician is recommended on an annual basis and results should be correlated with mammographic findings. MG 3D Screening Mammo W/Cad Bilateral CC and MLO view(s) were taken. Prior study comparison: September 28, 2006, bilateral screening mammogram w/CAD. September 25, 2005, CAD bilateral diagnostic mammogram. There are scattered fibroglandular densities. There are benign appearing vascular calcifications bilaterally now seen. Previous mammotome biopsy in the left breast. Asymmetric breast tissue in the left inferior breast, stable. ASSESSMENT: Benign, BI-RAD 2 RECOMMENDATION: Routine screening mammogram of both breasts in 1 year.
== END | disposition home or self-care (01) ==
LOC: RADMAMWWP 07:21
PROVIDERS: ATTEND Internal Medicine
DX: Z12.31 Encounter for screening mammogram for malignant neoplasm of breast (principal); Z78.0 Asymptomatic menopausal state
CPT/HCPCS: 77063; 77067

== ENCOUNTER → 2023-06-22 | Outpatient (CLI) | payer MEDICARE ==
[2023-06-22 16:28] LABS: ALT 21 U/L (8-44); AST 22 U/L (13-35); Albumin 4.4 d/dL (3.8-4.9); Albumin/Globulin Ratio 1.52 Ratio (1.60-3.17); Alkaline Phosphatase 215 U/L (41-126); BUN/Creat Ratio 15.88 Ratio (12.00-20.00); Blood Urea Nitrogen 12.7 mg/dL (9.0-27.0); Calcium 9.6 mg/dL (8.7-10.3); Carbon Dioxide 26.2 mmol/L (21.6-31.8); Chloride 106 mmol/L (96-109); Chol/HDL Ratio 3.17 Ratio; Globulin 2.9 d/dL (1.6-3.3); Glucose 107 mg/dL (70-110); LDL Cholesterol,Calculated 71.7 mg/dL (0.0-131.0); Potassium 5.2 mmol/L (3.5-5.5); Sodium 144 mmol/L (135-145); Total Bilirubin 0.5 mg/dL (0.3-1.2); Total Protein 7.3 d/dL (6.2-8.2)
== END | disposition home or self-care (01) ==
LOC: LABWHC1 10:45
PROVIDERS: ATTEND Internal Medicine Interventional Cardiology
DX: I10 Essential (primary) hypertension (principal); E78.2 Mixed hyperlipidemia
CPT/HCPCS: 36415; 80053; 80061

== ENCOUNTER → 2023-12-04 | Outpatient (CLI) | payer MEDICARE ==
[2023-12-04 16:02] LABS: ALT 29 U/L (8-44); AST 24 U/L (13-35); Albumin 4.2 g/dL (3.8-4.9); Alkaline Phosphatase 209 U/L (41-126); BUN/Creat Ratio 16.38 Ratio (12.00-20.00); Blood Urea Nitrogen 13.1 mg/dL (9.0-27.0); Calcium 9.6 mg/dL (8.7-10.3); Carbon Dioxide 25.2 mmol/L (21.6-31.8); Chloride 106 mmol/L (96-109); Globulin 2.8 g/dL (1.6-3.3); Glucose 107 mg/dL (70-110); LDL Cholesterol,Calculated 50.4 mg/dL (0.0-131.0); Potassium 4.7 mmol/L (3.5-5.5); Sodium 143 mmol/L (135-145); Total Bilirubin 0.4 mg/dL (0.3-1.2)
== END | disposition home or self-care (01) ==
LOC: LABWHC1 10:26
PROVIDERS: ATTEND Internal Medicine Interventional Cardiology
DX: I10 Essential (primary) hypertension (principal); E78.2 Mixed hyperlipidemia
CPT/HCPCS: 36415; 80053; 80061

== ENCOUNTER → 2024-06-06 | Outpatient (CLI) | payer MEDICARE ==
[2024-06-06 15:37] LABS: ALT 24 U/L (8-44); AST 25 U/L (13-35); Albumin 4.2 g/dL (3.8-4.9); Albumin/Globulin Ratio 1.45 Ratio (1.60-3.17); Alkaline Phosphatase 238 U/L (41-126); BUN/Creat Ratio 12.11 Ratio (12.00-20.00); Blood Urea Nitrogen 10.9 mg/dL (9.0-27.0); Calcium 9.5 mg/dL (8.7-10.3); Carbon Dioxide 25.7 mmol/L (21.6-31.8); Chloride 104 mmol/L (96-109); Chol/HDL Ratio 2.97 Ratio; Globulin 2.9 g/dL (1.6-3.3); Glucose 109 mg/dL (70-110); LDL Cholesterol,Calculated 60.5 mg/dL (0.0-131.0); Potassium 5.2 mmol/L (3.5-5.5); Sodium 141 mmol/L (135-145); Total Bilirubin 0.6 mg/dL (0.3-1.2); Total Protein 7.1 g/dL (6.2-8.2)
== END | disposition home or self-care (01) ==
LOC: LABWHC1 10:51
PROVIDERS: ATTEND Internal Medicine Interventional Cardiology
DX: E78.2 Mixed hyperlipidemia (principal)
CPT/HCPCS: 36415; 80053; 80061

== ENCOUNTER → 2024-10-24 | Outpatient (CLI) | payer MEDICARE ==
--- NOTE | 2024-10-24 08:26 | MM ---
Reason for Exam: Screening (asymptomatic). Last mammogram was performed 3 year(s) and 1 month(s) ago. Patient History: Menarche at age 14. First Full-Term at age 26. Postmenopausal. Patient has history of breast feeding. 06/09/2005, Benign Core Biopsy on the left side. Risk Values: Isa 5 year model risk: 2.1%. NCI Lifetime model risk: 4.9%. Prior Study Comparison: 09/25/2005 Bilateral Diagnostic Mammogram, [facility]. 09/28/2006 Bilateral Screening Mammogram, [facility]. 10/10/2021 Bilateral Screening Mammogram, [facility]. Tissue Density: There are scattered areas of fibroglandular density. Findings: Analyzed By CAD. Benign-appearing vascular calcifications bilaterally as redemonstrated. Mammotome biopsy clip left breast again seen. There is no suspicious new group of microcalcifications or new suspicious mass in either breast. Overall Assessment: Benign, BI-RAD 2 Management: Screening Mammogram of both breasts in 1 year. . Patient should continue monthly self-breast exams. A clinical breast exam by your physician is recommended on an annual basis. This exam should not preclude additional follow-up of suspicious palpable abnormalities. Note on Isa scores and lifetime risk: 1. A Isa score greater than 3% is considered moderate risk. If this is the case, consider specialist referral to assess eligibility for a risk reducing agent. 2. If overall lifetime risk for the development of breast cancer is 20% or higher, the patient may qualify for future screening with alternating mammogram and breast MRI. [facility], , 10/24/2024 8:23 AM. Electronically signed and approved by: Catarino Lopez M.D.
== END | disposition home or self-care (01) ==
LOC: RADMAMWWP 07:59
PROVIDERS: ATTEND Family Medicine
DX: Z12.31 Encounter for screening mammogram for malignant neoplasm of breast (principal); R92.323 Mammographic fibroglandular density, bilateral breasts; R92.1 Mammographic calcification found on diagnostic imaging of breast; Z78.0 Asymptomatic menopausal state
CPT/HCPCS: 77063; 77067

== ENCOUNTER → 2024-12-14 | Outpatient (CLI) | payer MEDICARE ==
[2024-12-14 15:25] LABS: ALT 30 U/L (8-44); AST 29 U/L (13-35); Albumin 4.1 g/dL (3.8-4.9); Albumin/Globulin Ratio 1.46 Ratio (1.60-3.17); Alkaline Phosphatase 213 U/L (41-126); BUN/Creat Ratio 18.62 Ratio (12.00-20.00); Blood Urea Nitrogen 14.9 mg/dL (9.0-27.0); Calcium 9.3 mg/dL (8.7-10.3); Carbon Dioxide 25.2 mmol/L (21.6-31.8); Chloride 105 mmol/L (96-109); Chol/HDL Ratio 2.56 Ratio; Globulin 2.8 g/dL (1.6-3.3); Glucose 116 mg/dL (70-110); LDL Cholesterol,Calculated 65.2 mg/dL (0.0-131.0); Potassium 4.4 mmol/L (3.5-5.5); Sodium 142 mmol/L (135-145); Total Bilirubin 0.5 mg/dL (0.3-1.2); Total Protein 6.9 g/dL (6.2-8.2)
== END | disposition home or self-care (01) ==
LOC: LABWHC1 09:50
PROVIDERS: ATTEND Internal Medicine Interventional Cardiology
DX: I10 Essential (primary) hypertension (principal); E78.2 Mixed hyperlipidemia
CPT/HCPCS: 36415; 80053; 80061